=== PATIENT | female | born 1940 | race Two or more races ===

== ENCOUNTER 2024-06-18 19:37 | Inpatient (IN) | payer MEDICARE, OTHER, SELFPAY ==
[2024-06-18] VITALS (12 sets, daily range): BP systolic 91–132; BP diastolic 64–96; BMI 26.2
[2024-06-18 17:00] LABS: % Basophils 0.5 % (0-2); % Immature Granulocytes 1.2 % (0-0.5); % Lymphocytes 27.2 % (20.5-51.1); % Monocytes 7.3 % (1.7-9.3); % Neutrophils 51.8 % (42.2-75.2); Absolute Basophils 0.1 10^3/uL (0-0.2); Absolute Eosinophils 1.2 10^3/uL (0-0.7); Absolute Immature Granulocytes 0.1 10^3/uL (0-0.05); Absolute Lymphocytes 2.7 10^3/uL (1.2-3.4); Absolute Monocytes 0.7 10^3/uL (0.1-0.6); Absolute Neutrophils 5.2 10^3/uL (1.4-6.5); Hematocrit 41.3 % (37.0-47.0); Hemoglobin 13.2 g/dL (12.0-16.0); Mean Corpuscular Hgb 28.9 pg (27.0-31.0); Mean Corpuscular Volume 90.6 fL (81.0-99.0); Mean Platelet Volume 9.4 fL (7.4-10.4); Nucleated Red Blood Cells % 0 %; Platelet Count 300 10^3/uL (130-400); Red Blood Cell Count 4.56 10^6/uL (4.20-5.40); Red Cell Dist. Width 15.7 % (11.5-14.5)
[2024-06-18 17:11] LABS: APTT 27.3 Sec (23.4-35.0)
[2024-06-18 17:16] LABS: ALT (SGPT) 12 U/L (0-35); AST (SGOT) 23 U/L (14-36); Albumin 3.8 g/dl (3.5-5.0); Alkaline Phosphatase 59 U/L (38-126); Blood Urea Nitrogen 20 mg/dl (7-17); Calcium 9.2 mg/dl (8.4-10.2); Carbon Dioxide 30 mmol/L (22-30); Chloride 101 mmol/L (98-107); Estimated Creatinine Clearance 42 ml/min; Glucose 158 mg/dl (70-99); Potassium 3.9 mmol/L (3.5-5.1); Sodium 140 mmol/L (135-145); Total Bilirubin 0.3 mg/dl (0.2-1.3); Total Protein 6.3 g/dl (6.3-8.2); eGFR > 60.00
[2024-06-18 17:21] LABS: NT-proBNP 4140 pg/ml
[2024-06-18] MEDS: CARDIZEM 10 MG IV (17:22)
[2024-06-18] MEDS: CARDIZEM 125 IV (17:29)
--- NOTE | 2024-06-18 17:57 | ED.GENMED ---
History of Present Illness
<Marixa Suazo MD, Resident - Last Filed: 06/18/24 19:28>
General
Chief Complaint: Cardiac Symptoms
Source: patient and records
Exam Limitations: none
Time Seen by Provider: 06/18/24 16:42
Nursing documentation reviewed up to this point in time: agreed with
Travel History
Have you traveled to any high risk areas for coronavirus over the past 14 days?: No
Have you had any contact with someone who has COVID-19?: No
Do you have any symptoms of coronavirus? Fever > 100 degrees, chills, cough, shortness of breath, sore throat, loss of taste or smell, muscle aches, or headache?: No
History of Present Illness
History of Present Illness:
83-year-old female with past medical history significant for migraines sciatica, A-fib, recent diagnosis of congestive heart failure, peripheral venous insufficiency and GERD presents to the hospital with onset of her heart fluttering associated
with chest pressure-like sensation, anxiety, profuse sweating at about 3 PM. She called her creative services writer who asked her to come to the [facility] emergency room for evaluation.
Patient had this triad of symptoms about 2 weeks ago as well as last week. For both These Episodes She Was Hospitalized at [facility], 2 weeks ago she did not have heart failure but last week when she was admitted she was diagnosed with
heart failure, and started on Lasix 20 mg last week. Patient saw her creative services writer on 06/12/2024, her weight was at 140 pounds, her most recent weight check yesterday was at 145 pounds. Patient states that her swelling of the feet has been worse
over the last 2 to 3 weeks but otherwise it has been intermittent secondary to her venous insufficiency. Patient denies having orthopnea or PND, lightheadedness, dizziness, syncope or near syncopal episodes.
Patient is on dofetilide and metoprolol at home, and Eliquis for stroke prevention.
Patient takes her Eliquis doses regularly, last dose was in the a.m. today, does not miss Eliquis dosing.
If applicable-neuro sx onset
Onset of symptoms known: No
Time pt last seen normal is known: No
Past History
<Marixa Suazo MD, Resident - Last Filed: 06/18/24 19:28>
Past History
ED Past Medical History: Arrthythmia, HTN and Other (Ambulatory dysfunction, migraines, prior head injury, subdural hematoma, A-fib, congestive heart failure, essential hypertension, peripheral venous insufficiency, GERD, irritable bowel syndrome,
stress incontinence, sensorineural hearing loss B/L)
ED Past Surgical History: Other (Cataract extraction, tubal ligation, bilateral ear surgery)
Patient has exhibited threatening behavior?: No
PSI?: No
Social History
Tobacco: Former smoker
Alcohol: None
Drug: None
Living: alone
Employment: Retired
Family History
Family History: Unable to obtain
Review of Systems
<Marixa Suazo MD, Resident - Last Filed: 06/18/24 19:28>
Review of Systems
Other source history: family
All Other Systems: ROS reviewed and negative except as documented in HPI and ROS
Constitutional: Reports fatigue and other (Sweating present.)
EENT: Reports no symptoms
Respiratory: Reports trouble breathing
Cardiac: Reports chest pain, diaphoresis and palpitations
ABD/GI: Reports no symptoms
: Reports no symptoms
Musculoskeletal: Reports no symptoms
Skin: Reports no symptoms
Neurological: Reports no symptoms
Endocrine: Reports no symptoms
Hematologic/Lymphatic: Reports no symptoms
Psychiatric: Reports no symptoms
Phy Exam
<Marixa Suazo MD, Resident - Last Filed: 06/18/24 19:28>
General Physical Exam
General Presentation: well appearing
General Skin: warm
General Hydration: appears well hydrated
ENT Exam
ENT Exam: EOMI, TM's normal and pharynx normal
Cardiovascular Exam
Cardiovascular Exam: regular rate/rhythm, no edema, no gallop, no JVD, no murmur and normal peripheral pulses
Heart Sounds: normal
Pulmonary Exam
Pulmonary Exam: lungs clear, no respiratory distress, no rales, no crackles and no rhonchi
Gastrointestinal Exam
Gastrointestinal Exam: normal bowel sounds, non tender, soft, no pulsatile mass and non distended
Neurological Exam
Neurological Exam: alert, no motor deficits, normal reflexs and no sensory deficits
Musculoskeletal Exam
Musculoskeletal Exam: edema (2+ pitting edema, and venous stasis dermatitis.)
Skin Exam
Skin Exam: normal color
Scores
<Marixa Suazo MD, Resident - Last Filed: 06/18/24 19:28>
[id number] Score for Afib Stroke Risk
Age in Years (65=0, 65-74=1, >/=75=2): > or = 75
Sex (Female=+1): Female
Congestive Heart Failure History (Yes=+1): Yes
Hypertension History (Yes=+1): Yes
Stroke/TIA/Thromboembolism History (Yes=+2): No
Vascular Disease History (Yes=+1): Yes
Diabetes Mellitus (Yes=+1): No
Score: 6
Anticoagulation Recommendations: Recommend anticoagulation (as validated in nonvalvular fib)
<Sunny Tran MD - Last Filed: 06/18/24 19:26>
[id number] Score for Afib Stroke Risk
Score: 6
Anticoagulation Recommendations: Recommend anticoagulation (as validated in nonvalvular fib)
Course
<Mraixa Suazo MD, Resident - Last Filed: 06/18/24 19:28>
Orders/Labs/Results
Orders:
Orders
06/18/24 16:29
EKG [Electrocardiogram (*1)] Urgent
Reason for Study: Atrial Fibrillation
EKG- Treatment ONCE
06/18/24 16:52
Complete Blood Count/With Diff Urgent
Comprehensive Metabolic Panel Urgent
PTT Urgent
Pro-BNP [NT-proBNP] Urgent
06/18/24 17:04
Diltiazem HCl [Cardizem] 10 mg IV NOW STA
06/18/24 17:15
Diltiazem 125 mg/125 ml Nss [Cardizem] 125 mg in 125 ml IV PER PROTOCOL
Initial dose in mg/hr, then titrate:: 5
Titrate to keep:: Heart rate 80-100 bpm
Titrate by mg/hr:: 5 mg/hr
Frequency of titrations (minutes):: 15
Maximum dose in mg/hr:: 15
06/18/24 18:05
CR Chest Portable - 1 View Urgent
Comment:
Reason For Exam: SOB
Reason Study Needs to be Portable: Patient Unstable
Abnormal Lab Results
06/18/24
16:52
MCHC 32.0 L g/dL
(33.0-37.0)
RDW 15.7 H %
(11.5-14.5)
Abs Immat Gran (auto) 0.1 H 10^3/uL
(0-0.05)
Absolute Monos (auto) 0.7 H 10^3/uL
(0.1-0.6)
Absolute Eos (auto) 1.2 H 10^3/uL
(0-0.7)
Immature Gran % 1.2 H %
(0-0.5)
Eosinophils % 12.0 H %
(0-6)
BUN 20 H mg/dl
(7-17)
Glucose 158 H mg/dl
(70-99)
06/18/24 16:52
06/18/24 16:52
Vital Signs
Initial and Last Documented VS:
Initial Vital Signs
Temp Pulse Resp BP Pulse Ox
98.2 F 132 16 112/72 99
06/18/24 16:30 06/18/24 16:30 06/18/24 16:30 06/18/24 16:30 06/18/24 16:30
Last Documented Vital Signs
Temp Pulse Resp BP Pulse Ox
98.2 F 121 18 113/76 97
06/18/24 16:30 06/18/24 19:16 06/18/24 19:16 06/18/24 19:16 06/18/24 19:16
<Sunny Tran MD - Last Filed: 06/18/24 19:26>
Orders/Labs/Results
Orders:
Orders
06/18/24 16:29
EKG [Electrocardiogram (*1)] Urgent
Reason for Study: Atrial Fibrillation
EKG- Treatment ONCE
06/18/24 16:52
Complete Blood Count/With Diff Urgent
Comprehensive Metabolic Panel Urgent
PTT Urgent
Pro-BNP [NT-proBNP] Urgent
06/18/24 17:04
Diltiazem HCl [Cardizem] 10 mg IV NOW STA
06/18/24 17:15
Diltiazem 125 mg/125 ml Nss [Cardizem] 125 mg in 125 ml IV PER PROTOCOL
Initial dose in mg/hr, then titrate:: 5
Titrate to keep:: Heart rate 80-100 bpm
Titrate by mg/hr:: 5 mg/hr
Frequency of titrations (minutes):: 15
Maximum dose in mg/hr:: 15
06/18/24 18:05
CR Chest Portable - 1 View Urgent
Comment:
Reason For Exam: SOB
Reason Study Needs to be Portable: Patient Unstable
Abnormal Lab Results
06/18/24
16:52
MCHC 32.0 L g/dL
(33.0-37.0)
RDW 15.7 H %
(11.5-14.5)
Abs Immat Gran (auto) 0.1 H 10^3/uL
(0-0.05)
Absolute Monos (auto) 0.7 H 10^3/uL
(0.1-0.6)
Absolute Eos (auto) 1.2 H 10^3/uL
(0-0.7)
Immature Gran % 1.2 H %
(0-0.5)
Eosinophils % 12.0 H %
(0-6)
BUN 20 H mg/dl
(7-17)
Glucose 158 H mg/dl
(70-99)
06/18/24 16:52
06/18/24 16:52
Vital Signs
Initial and Last Documented VS:
Initial Vital Signs
Temp Pulse Resp BP Pulse Ox
98.2 F 132 16 112/72 99
06/18/24 16:30 06/18/24 16:30 06/18/24 16:30 06/18/24 16:30 06/18/24 16:30
Last Documented Vital Signs
Temp Pulse Resp BP Pulse Ox
98.2 F 121 18 113/76 97
06/18/24 16:30 06/18/24 19:16 06/18/24 19:16 06/18/24 19:16 06/18/24 19:16
<Marixa Suazo MD, Resident - Last Filed: 06/18/24 19:28>
MDM/Problems Addressed
Differential Diagnosis Includes:
Atrial fibrillation, acute CAD, acute exacerbation of congestive heart failure, other atrial arrhythmias.
MDM/Problems Addressed:
EKG evidence of for atrial fibrillation with RVR.
Patient was started on diltiazem drip.
Chronic conditions affecting care: Arrhythmia and Other (CHF)
<Marixa Suazo MD, Resident - Last Filed: 06/18/24 19:28>
*Radiology
Radiology exam reviewed: preliminary read by ED provider and radiology read reviewed
*Pulse Oximetry
Patient hypoxic: no
*EKG
Interpreted by ED Provider?: Yes
EKG Intrepretation Date: 06/18/24
EKG Intrepretation Time: 16:30
Interpretation: abnormal
Comparison EKG: changes noted
Rate: tachycardiac
Rhythm: a-fib
[place]: normal axis
Interval: normal QT interval
QRS Pattern: normal QRS
Ischemia: no ischemia
*Oil Dispatcher Interpretation
Rate: tachycardiac
Interpretation: abnormal
Heart Rate: 136
Rhythm: a-fib
*Critical Care Note
Total Time (30-74mins, 75-104mins- exclusive of procedures): Not Applicable
Data Reviewed
Review of Other/Old Records Reveals: Labs, Records and Radiology Studies
Source: patient and records
<Marixa Suazo MD, Resident - Last Filed: 06/18/24 19:28>
Update Note
Update Note:
Patient is updated that overnight patient might need to stay in the hospital.
Atrial fibrillation symptoms improved with the start of diltiazem drip.
Currently patient reports having some headache and dizziness.
Diltiazem drip stopped and patient is given a bolus of IV fluids.
ED Attending Note
<Marixa Suazo MD, Resident - Last Filed: 06/18/24 19:28>
ED Attending Note
I performed the substantive portion of visit, reviewed & personally made and approve the management plan that is documented in note by myself or SUSAN.: No
I performed a history and physical exam of patient and discussed management with resident, I reviewed resident's note and agree with documented findings and plan of care.: No
-
Portions of this chart may have been created with voice recognition software.� Occasional wrong word or��sound alike� substitutions may have occurred due to the inherent limitations of voice recognition software.
<Sunny Tran MD - Last Filed: 06/18/24 19:26>
ED Attending Note
Patient seen and examined by attending physician: Yes
ED Attending Note:
Patient with history of paroxysmal atrial fibrillation on Eliquis, presents to ED secondary to chest palpitations with increased heart rate noted at home, associated with chest pressure, diaphoresis, and lightheadedness. Patient has had multiple
similar episodes, including recent admission at [facility], during which time patient required diuresis and treatment with Cardizem which converted her spontaneously during hospitalization. Denies decreased oral intake. Denies nausea
or vomiting. Denies headache. Patient has taken Eliquis continually, including this morning.
Physical Exam
General: no apparent distress, not acutely ill. afebrile
Head: nc/at. eomi
Neck: supple. no meningeal signs. normal posterior pharynx
Heart: s1/s2 regular rate and rhythm, no murmur. equal radial pulses.
Lungs: no acute respiratory distress. clear bilaterally
Abdomen: normal bowel sounds. not tender.
Neuro: alert and oriented. no focal neurological deficits
Skin: no rash
Psychiatric: well kept. interactive and cooperative
Extremities: LE b/l pitting edema. no calf tenderness.
Patient started on Cardizem bolus along with Cardizem infusion, with improved heart rate. As there is increased leg swelling, along with increased proBNP level as well as a chest ray findings, patient may also require inpatient diuresis. Patient
will be admitted for further evaluation and treatment.
Critical care statement: A total of 40 minutes of critical care time was provided for this patient. This includes management of unstable vital signs, evaluation of the patient at bedside, reviewing the patient's pertinent medical records, review of
old EKGs and review of pertinent medical records. This time with separate from time utilized to perform the aforementioned documented procedures
Discharge Plan
Departure
Patient Disposition: Admit
Date of Disposition: 06/18/24
Time of Disposition: 19:27
Admit to doctor: Dr. Padron
Presentation/result/management discussed w/ accepting MD/DO: Hospitalist
Patient with high blood pressure during this ER visit?: No
Condition: Fair
Covid-19: Not Applicable
Discharge Problem:
Paroxysmal A-fib
Referrals:
Robb Moreno MD [Family Provider] -
Interventions
Interventions:
*Risk Screen - Suicide Last Done: 06/18/24 16:47
*General Assessment Last Done: 06/18/24 16:39
*Neglect/Abuse Screening Last Done: 06/18/24 16:47
ED- Fall Risk Assessment Last Done: 06/18/24 16:49
*ED COVID-19 Vaccine History Last Done: 06/18/24 16:39
ED- Pulmonary Assessment Last Done: 06/18/24 16:49
ED- Cardiac Assessment Last Done: 06/18/24 16:48
Discharge Date and Time
Print Language: URUGUAYAN
[2024-06-18 19:16] LABS: Glucose - Point of Care 73 mg/dl (70-99)
--- NOTE | 2024-06-18 19:37 | HPS.HSE ---
Family Physician
-
Family Physician: Robb Jackman [facility]
Chief Complaint
-
heart fluttering
History of Present Illness
83-year-old female past medical history of paroxysmal atrial fibrillation, CHF, peripheral venous insufficiency, GERD, migraines, sciatica, presenting with heart fluttering associated with chest pressure, anxiety, profuse sweating at 3 PM. She
called her public health engineer who told her to come to the hospital.
She had symptoms 2 weeks ago as well. She had 2 recent admissions for A-fib with RVR. She states that she was recently started on Tikosyn and the dose was increased. She was also changed to long-acting metoprolol. The most recent time she was
hospitalized at [facility] and recently diagnosed with heart failure and discharged on 20 mg Lasix last week daily. She saw her public health engineer on 03/12/2024 and her weight was 140 pounds. Her recent weight yesterday was 145 pounds but she
denies any swelling in her legs or weight gain. She denies any shortness of breath when she lies down or at nighttime.
At the current time patient feels intermittently dizzy as if she is going to pass out.
Patient's public health engineer is Dr. Bennett.
She denies smoking or alcohol use.
Medical History
Past Medical History
Past Medical History: Reports Other (paroxysmal atrial fibrillation, CHF, peripheral venous insufficiency, GERD, migraines, sciatica,)
Past Surgical History: Reports None
Social History
Tobacco: Non-smoker
Alcohol: None
Drug: None
Family History
Family History: Not pertinent
Allergies / Home Medications
Allergies reflects when Allergies were last updated in [facility].
Home Medications with original date entered in [facility]
Allergy/Medication List:
Allergies
Allergy/AdvReac Type Severity Reaction Status Date / Time
meperidine [From Demerol] Allergy Rash Verified 12/18/20 17:29
Penicillins Allergy Rash Verified 12/18/20 17:29
Sulfa (Sulfonamide Allergy Nausea / Verified 12/18/20 17:29
Antibiotics) Vomiting
Home Medications
apixaban 5 mg tablet (Eliquis) 5 mg PO BID 06/18/24
cholecalciferol (vitamin D3) 25 mcg (1,000 unit) tablet (Vitamin D3) 75 mcg PO DAILY 06/18/24
dofetilide 500 mcg capsule 500 mcg PO BID 06/18/24
duloxetine 60 mg capsule,delayed release 60 mg PO HS 06/18/24
furosemide 20 mg tablet 20 mg PO DAILY 06/18/24
losartan 25 mg tablet 12.5 mg PO DAILY 06/18/24
metoprolol tartrate 50 mg tablet 50 mg PO BID 06/18/24
oxycodone-acetaminophen 5 mg-325 mg tablet 1 tab PO Q4H 06/18/24
rabeprazole 20 mg tablet,delayed release 20 mg PO BID 06/18/24
sennosides 8.6 mg tablet (senna) 17.2 mg PO HS 06/18/24
Review of Systems
-
History Source: Patient
A 12 point ROS was completed and negative except as noted: Yes
Constitutional: Reports No Symptoms
EENT: Reports No Symptoms
Respiratory: Reports See HPI
Cardiac: Reports See HPI
Abdomen/GI: Reports No Symptoms
: Reports No Symptoms
Musculoskeletal: Reports No Symptoms
Skin: Reports No Symptoms
Neurological: Reports No Symptoms
Endocrine: Reports No Symptoms
Hematologic/Lymphatic: Reports No Symptoms
Psych: Reports No Symptoms
Physical Exam
Vital Signs
Vital Signs
Temp Pulse Resp BP Pulse Ox
98.2 F 123 20 102/64 100
06/18/24 16:30 06/18/24 19:30 06/18/24 19:30 06/18/24 19:30 06/18/24 19:30
Physical Exam
General: Well Developed, Well Nourished and No Apparent Distress
HEENT: NormoCephalic, Moist mucous membranes and Atraumatic
Respiratory: Clear
Cardiac: S1/S2 and Regular Rhythm; No Murmur or Rub
GI: Soft, Non Tender, Non Distended and Normal Bowel Sounds; No Organomegaly
Rectal: Deferred by Provider
Musculoskeletal: No Clubbing, No Cyanosis and No Edema
Skin: No Rash
Neuro: Nonfocal/grossly intact
Laboratory Results
-
06/18/24 16:52
06/18/24 16:52
Laboratory Results
APTT 27.3 Sec (23.4-35.0) 06/18/24 16:52
Total Bilirubin 0.3 mg/dl (0.2-1.3) 06/18/24 16:52
AST 23 U/L (14-36) 06/18/24 16:52
ALT 12 U/L (0-35) 06/18/24 16:52
Alkaline Phosphatase 59 U/L (38-126) 06/18/24 16:52
Data Reviewed
-
Lab Data: Labs Reviewed by me
Old Records: Reviewed
Impression/Plan
-
IMPRESSION:
PLAN:
# Atrial fibrillation with RVR
-EKG shows atrial fibrillation with RVR with rate of 116.
-Check troponin
-Cardizem drip
-Continue Eliquis
-Need to obtain records from her public health engineer Dr. Bennett
-Cardiology consulted
Chronic HFpEF
-Chest x-ray shows low lung volumes, pulmonary vascularity at least top normal, cannot exclude mild acute pulmonary edematous changes
-Continue 20 mg Lasix, may need to potentially increase
Essential hypertension
-Hold losartan
Peripheral venous insufficiency
Hyperlipidemia
GERD
-Continue rabeprazole
Migraines
Sciatica
Full code
DVT prophylaxis�Eliquis
Cardiac diet
[2024-06-18 20:11] LABS: Troponin I < 0.012 ng/ml
[2024-06-18] MEDS: ELIQUIS 5 MG PO (21:29)
[2024-06-18] MEDS: PROTONIX 40 MG PO (21:29)
[2024-06-18] MEDS: LOPRESSOR 50 MG PO (21:29)
[2024-06-18] MEDS: SENOKOT 17.2 MG PO (21:29)
[2024-06-18] MEDS: CYMBALTA DELAYED RELEASE 60 MG PO (21:30)
[2024-06-18] MEDS: TIKOSYN 500 MCG PO (21:30)
[2024-06-18] MEDS: PERCOCET 5/325 1 TABLET PO (21:38)
--- NOTE | 2024-06-18 22:00 | PTCARENOTE ---
Addendum entered by Aleta Gonzalez RN 06/18/24 23:47:
23:47 Pt converted to NSR with HR 58 Cardizem gtt is off
Original Note:
Pt admitted to room 2253. Pt AAOx3. Pt ambulates with walker at baseline but refused to get out of bed d/t weakness. Pt on Cardizem gtt, AFib on monitor with HR 102-110. Pt oriented to room, call ivory in reach.
[2024-06-19] VITALS (9 sets, daily range): BP systolic 100–137; BP diastolic 60–90; PULSE 75; O2SAT 95; BMI 27.8; BMI 26.6
[2024-06-19] MEDS: PERCOCET 5/325 1 TABLET PO ×6 (02:08→23:11)
[2024-06-19 02:09] LABS: % Basophils 0.7 % (0-2); % Eosinophils 9.2 % (0-6); % Immature Granulocytes 1.2 % (0-0.5); % Lymphocytes 22.2 % (20.5-51.1); % Monocytes 9.1 % (1.7-9.3); % Neutrophils 57.6 % (42.2-75.2); Absolute Basophils 0.1 10^3/uL (0-0.2); Absolute Immature Granulocytes 0.1 10^3/uL (0-0.05); Absolute Lymphocytes 2.5 10^3/uL (1.2-3.4); Absolute Neutrophils 6.5 10^3/uL (1.4-6.5); Hematocrit 39.7 % (37.0-47.0); Hemoglobin 12.9 g/dL (12.0-16.0); Mean Corp Hgb Conc. 32.5 g/dL (33.0-37.0); Mean Corpuscular Hgb 29.3 pg (27.0-31.0); Mean Corpuscular Volume 90.2 fL (81.0-99.0); Nucleated Red Blood Cells % 0 %; Platelet Count 263 10^3/uL (130-400); Red Cell Dist. Width 15.7 % (11.5-14.5); White Blood Cell Count 11.3 10^3/uL (4.8-10.8)
[2024-06-19 02:32] LABS: ALT (SGPT) 11 U/L (0-35); AST (SGOT) 21 U/L (14-36); Albumin 3.5 g/dl (3.5-5.0); Alkaline Phosphatase 56 U/L (38-126); Blood Urea Nitrogen 17 mg/dl (7-17); Calcium 9.1 mg/dl (8.4-10.2); Carbon Dioxide 30 mmol/L (22-30); Chloride 103 mmol/L (98-107); Estimated Creatinine Clearance 48 ml/min; Glucose 107 mg/dl (70-99); Potassium 4.7 mmol/L (3.5-5.1); Sodium 142 mmol/L (135-145); Total Bilirubin 0.3 mg/dl (0.2-1.3); Total Protein 5.9 g/dl (6.3-8.2); eGFR > 60.00
[2024-06-19 02:44] LABS: Troponin I < 0.012 ng/ml
--- NOTE | 2024-06-19 08:15 | PTCARENOTE ---
Assumed care of pt from prev nsg shift; Pt AAOx3 w/no c/o CP or SOB. Pt w/chronic back & neck pain for which pt gets scheduled PO Percocet. Pt's VS stable w/HR in the 60's-70's & BP 137/90 this AM. Pt c/o 'discomfort' at her L AC IV site. IV
dressing loose & IV leaked when flushing. L AC line D/C'd. Pt w/patent L FA line still in place. Pt assisted w/calling for breakfast & call ivory within reach. Plan of care ongoing.
--- NOTE | 2024-06-19 08:46 | W.PN.HOSP.TC ---
Addendum entered and electronically signed by Preston Thompson MD 06/19/24 13:58:
Updated son over the phone today
Original Note:
Today's Communication/Plan
-
Rate control and antiarrhythmic and anticoagulant. PT OT eval
Assessment / Plan
Assessment / Plan
Physical exam:
General: Well Developed, Well Nourished and No Apparent Distress
HEENT: Normocephalic, Atraumatic and Moist Mucous Membranes
Respiratory: Clear to Auscultation; Negative Wheezes, Rales or Rhonchi
Cardiac: Regular Rhythm and S1/S2
GI: Soft, Nontender and Nondistended
Musculoskeletal: No Clubbing, No Cyanosis and No Edema
Neuro: Awake, Alert and Oriented
Psych: Calm
A/P:
Paroxysmal atrial fibrillation:
On Cardizem drip but can discontinue
On rate control, metoprolol tartrate 50 mg p.o. twice a day
And antiarrhythmics, Tikosyn 500 mcg p.o. twice a day
On anticoagulants, Eliquis 5 mg p.o. twice a day
Continue cardiac monitoring
PT OT eval
Chronic HFpEF:
Continue diuretics, Lasix 20 mg twice a day
Continue beta-blockers
Hypertension:
Holding losartan
Continue metoprolol
Monitor blood pressure adjust medications accordingly
Chronic pain with opioid dependence:
Continue narcotics
GERD:
Continue PPI
DVT prophylaxis:
Eliquis
CODE STATUS:
Full code
Anticipated Discharge: 24 - 48 hours
Subjective/Interval History
-
Date of Service: June 19, 2024
Feels better overall, no chest pain or shortness of breath or palpitations.
Objective Data
-
Labs:
Laboratory Results
06/19/24
02:01
WBC 11.3 H
Hgb 12.9
Hct 39.7
Plt Count 263
Sodium 142
Potassium 4.7
Chloride 103
Carbon Dioxide 30
BUN 17
Creatinine 0.7
Glucose 107 H
Calcium 9.1
Total Bilirubin 0.3
AST 21
ALT 11
Alkaline Phosphatase 56
Vital Signs:
Vital Signs
Temp Pulse Resp BP Pulse Ox
97.9 F 70 18 137/90 98
06/19/24 08:17 06/19/24 08:15 06/19/24 08:17 06/19/24 08:13 06/19/24 08:17
I&O
06/18/24 06/19/24 06/20/24
06:59 06:59 06:59
Intake Total 150 / 150
Balance 150 / 150
[2024-06-19] MEDS: VITAMIN D3 (cholecalciferol) 75 MCG PO (09:01)
[2024-06-19] MEDS: TIKOSYN 500 MCG PO ×2 (09:01→19:45)
[2024-06-19] MEDS: ELIQUIS 5 MG PO ×2 (09:02→19:45)
[2024-06-19] MEDS: LASIX 20 MG PO (09:02)
[2024-06-19] MEDS: PROTONIX 40 MG PO ×2 (09:02→19:45)
[2024-06-19] MEDS: LOPRESSOR 50 MG PO ×2 (09:02→19:45)
[2024-06-19 09:33] LABS: Troponin I < 0.012 ng/ml
--- NOTE | 2024-06-19 12:14 | CM ---
spoke to pt in room, he is prev indep, lives with his in a 1 story home with no steps to enter. he denies any dc planning needs or dme's. plan is for dc to home when medically stable.
--- NOTE | 2024-06-19 12:18 | CM ---
spoke to pt in room, she is prev indep, lives alone in an apt at [facility]. she has a walker to use if needed. she denies any dc planning needs. plan is for dc to home when medically stable.
--- NOTE | 2024-06-19 15:10 | CON.CAR ---
Consultation
Consultation Request
Date/Time Consultation Requested: 06/19/24 at 0849
Date/Time Consultation Performed: 06/19/24 at 1400
Requesting Provider: Dr. Thompson
Performing Provider: Dr. Wasserman
Reason for Consultation: Paroxysmal Afib with RVR
Medical History
-
History of Present Illness:
[facility] with pal[facility]ations and was admitted with Afib with consult to cardiology. Patient has a h/o pAfib and was previously seen for consultation for PVI in 2021, but elected not to proceed. Patient reports that she seemed to
be doing well until last month when she started with increased burden of Afib. Patient had Afib for about 10 days before she went to [facility] ER and was admitted with acute HF and rapid Afib. Patient spontaneously converted with Cardizem IV and was
loaded with Tikosyn at a moderate dose. Patient was d/c'd to home and returned about a week later with more Afib and her Tikosyn dose was increased to 500 mcg q 12 hours. Patient then saw Dr. Bennett in the office 06/12/24 and was in SR. Plan was for
repeat consultation for PVI and patient is scheduled to see Dr. Espinoza 08/2024. In the meantime patient started with palpitations Tuesday and then had sustained Afib with symptoms of SOB and anxiety and was told by her hair baler to go [facility].
Patient was given Cardizem 10 mg IV x1 and then started on a Cardizem gtt and she spontaneously converted. At one point BP was as low as 90/50 and patient had near syncope, but no evidence of conversion pause or arrhythmia. Patient remains in SR now
with PACs that are highly symptomatic. Patient also with SOB and also with nonpitting LE edema. pro-BNP was 4140 in the ER, no Lasix IV given.
PMH:
Paroxysmal Afib
sotalol stopped due to ineffectiveness
amiodarone stopped due to neurologic side effects and long QT
Likely cortriatrium by CAL 10/09/21
Chronic Tikosyn therapy since 05/2024
Chronic Eliquis OAC
Recent admission x2 at [facility] for Afib and CHF 05/2024
Frequent PACs
HTN
Chronic pain with opioid dependence
Past Medical History
Past Medical History: Other (in HPI)
Past Surgical History: Gynecological (tubal ligation)
Social History
Tobacco: Former Smoker
Alcohol: None
Drug: None
Living: Alone (independent living at [facility])
Family History
Family History: CAD and Cancer
Allergies / Home Medications
Allergy/AdvReac Type Severity Reaction Status Date / Time
meperidine [From Demerol] Allergy Rash Verified 12/18/20 17:29
Penicillins Allergy Rash Verified 12/18/20 17:29
Sulfa (Sulfonamide Allergy Nausea / Verified 12/18/20 17:29
Antibiotics) Vomiting
�Medication �Instructions �Recorded �Confirmed �Type
apixaban 5 mg tablet (Eliquis) 5 mg PO BID Blood Clot 06/18/24 06/18/24 History
Prevention/Tx
cholecalciferol (vitamin D3) 25 75 mcg PO DAILY Supplement 06/18/24 06/18/24 History
mcg (1,000 unit) tablet (Vitamin
D3)
dofetilide 500 mcg capsule 500 mcg PO BID Arrhythmia 06/18/24 06/18/24 History
duloxetine 60 mg capsule,delayed 60 mg PO HS Depression 06/18/24 06/18/24 History
release
furosemide 20 mg tablet 20 mg PO DAILY Fluid 06/18/24 06/18/24 History
Retention/Swelling
losartan 25 mg tablet 12.5 mg PO DAILY Blood Pressure 06/18/24 06/18/24 History
metoprolol tartrate 50 mg tablet 50 mg PO BID Blood Pressure 06/18/24 06/18/24 History
oxycodone-acetaminophen 5 mg-325 1 tab PO Q4H Pain 06/18/24 06/18/24 History
mg tablet
rabeprazole 20 mg tablet,delayed 20 mg PO BID Gastrointestinal Issue 06/18/24 06/18/24 History
release
sennosides 8.6 mg tablet (senna) 17.2 mg PO HS Constipation 06/18/24 06/18/24 History
Review of Systems
-
History Source: Patient
All other systems: Negative unless noted
Physical Exam
Vital Signs
Temp Pulse Resp BP Pulse Ox
98.1 F 74 16 128/74 98
06/19/24 11:13 06/19/24 14:30 06/19/24 11:13 06/19/24 11:10 06/19/24 11:13
GEN: NAD. AAOx3
HEENT: EOMI, MMM
LUNGS: Right base rales without wheeze. On RA
CV: SR with PACs on tele. Reg with ectopy, S1/S2, no murmur
ABD: soft, BS+, NT, ND
EXT: +1 non-pitting B/L LE edema. No clubbing, cyanosis or lesions B/L
NEURO: Gross non-focal
SKIN: Warm, dry and pink. No rash
Lab Results
06/19/24 02:01
06/19/24 02:01
Troponin I Cancelled 06/19/24 13:30
Uos-U-Jixjteolwjm Pept 4140 pg/ml 06/18/24 16:52
Impression / Plan
-
PCP: Dr. Robb Atwood
Cardiology: Dr. Bennett at [facility]
Impression:
Acute HFpEF
Afib with RVR spontaneously converted to SR with Cardizem gtt 06/18/24
Paroxysmal Afib
sotalol stopped due to ineffectiveness
amiodarone stopped due to neurologic side effects and long QT
Likely cortriatrium by CAL 10/09/21
Chronic Tikosyn therapy since 05/2024
Chronic Eliquis OAC
Recent admission x2 at [facility] for Afib and CHF 05/2024
Frequent PACs
HTN
Chronic pain with opioid dependence
Echo echo 05/25/2024: EF 60 to 65%, normal RV function, mild MR
Plan:
-Patient [facility] yesterday with palpitations and was admitted with Afib with consult to cardiology. Patient has a h/o pAfib and was previously seen for consultation for PVI in 2021, but elected not to proceed. Patient reports that she seemed to
be doing well until last month when she started with increased burden of Afib. Patient had Afib for about 10 days before she went to [facility] ER and was admitted with acute HF and rapid Afib. Patient spontaneously converted with Cardizem IV and was
loaded with Tikosyn at a moderate dose. Patient was d/c'd to home and returned about a week later with more Afib and her Tikosyn dose was increased to 500 mcg q 12 hours. Patient then saw Dr. Bennett in the office 06/12/24 and was in SR. Plan was for
repeat consultation for PVI and patient is scheduled to see Dr. Espinoza 08/2024. In the meantime patient started with palpitations Tuesday and then had sustained Afib with symptoms of SOB and anxiety and was told by her hair baler to go [facility].
Patient was given Cardizem 10 mg IV x1 and then started on a Cardizem gtt and she spontaneously converted. At one point BP was as low as 90/50 and patient had near syncope, but no evidence of conversion pause or arrhythmia. Patient remains in SR now
with PACs that are highly symptomatic. Patient also with SOB and also with nonpitting LE edema. pro-BNP was 4140 in the ER, no Lasix IV given.
-Rale son exam, CXR suggests acute HF and pro-BNP 4140. Lasix 40 mg IV x1 now. Will re-evaluate volume status in AM to see if additional Lasix IV is needed.
-EF stable by echo at [facility] 05/25/24. Suspect acute HF based on rapid Afib, will focus on rate and rhythm control efforts.
-Cont Eliquis 5 mg BID (age 83, Cre 0.7, wt 68.9 kg). No missed doses.
-Patient spontaneously converted with Cardizem gtt.
-Cont Tikosyn 500 mcg q 12 hours that was started last month at [facility]. QTc 491 ms in SR on ECG 06/19/24 as reviewed by me.
-Cannot take sotalol or amio as outlined above. Patient previously declined ablation, but now agreeable. Patient with evidence of cortriatrium by CAL in [address] to establish which pulmonary veins come off anterior/posterior atria.
Will attempt to get EP appt moved up and to obtain CT as an outpatient in short order.
[2024-06-19] MEDS: LASIX 40 MG IV (16:20)
[2024-06-19] MEDS: FLUSH (NSS) 2 FLUSH IV (16:21)
[2024-06-19] MEDS: CYMBALTA DELAYED RELEASE 60 MG PO (23:11)
[2024-06-19] MEDS: SENOKOT 17.2 MG PO (23:11)
--- NOTE | 2024-06-19 23:51 | PTCARENOTE ---
Pt rec'd at change of shift awake,alert 'comfortable' at present while watching a movie. Sinus with first degree and occ pvc's noted on telemetry.
pure wick changed at 2300 ( pt with hx of significant incontinence at home). call ivory within reach.
[2024-06-20] MEDS: PERCOCET 5/325 1 TABLET PO ×4 (03:04→15:54)
[2024-06-20 03:52] VITALS: BP 115/62
[2024-06-20 04:18] LABS: % Basophils 1.2 % (0-2); % Eosinophils 13.3 % (0-6); % Immature Granulocytes 1.6 % (0-0.5); % Lymphocytes 28.1 % (20.5-51.1); % Neutrophils 45.8 % (42.2-75.2); Absolute Basophils 0.1 10^3/uL (0-0.2); Absolute Eosinophils 1.3 10^3/uL (0-0.7); Absolute Immature Granulocytes 0.2 10^3/uL (0-0.05); Absolute Lymphocytes 2.7 10^3/uL (1.2-3.4); Absolute Neutrophils 4.5 10^3/uL (1.4-6.5); Hematocrit 41.3 % (37.0-47.0); Hemoglobin 12.9 g/dL (12.0-16.0); Mean Corp Hgb Conc. 31.2 g/dL (33.0-37.0); Mean Corpuscular Hgb 29.3 pg (27.0-31.0); Mean Corpuscular Volume 93.9 fL (81.0-99.0); Mean Platelet Volume 9.3 fL (7.4-10.4); Nucleated Red Blood Cells % 0 %; Platelet Count 286 10^3/uL (130-400); Red Cell Dist. Width 15.8 % (11.5-14.5); White Blood Cell Count 9.7 10^3/uL (4.8-10.8)
[2024-06-20 04:43] LABS: Blood Urea Nitrogen 22 mg/dl (7-17); Calcium 9.1 mg/dl (8.4-10.2); Carbon Dioxide 32 mmol/L (22-30); Chloride 97 mmol/L (98-107); Estimated Creatinine Clearance 39 ml/min; Glucose 116 mg/dl (70-99); Potassium 4.1 mmol/L (3.5-5.1); Sodium 141 mmol/L (135-145)
[2024-06-20 06:00] VITALS: BMI 25.9
[2024-06-20 07:56] VITALS: BP 141/76
--- NOTE | 2024-06-20 08:00 | PTCARENOTE ---
Assumed care of pt from prev nsg shift; Pt AAOx3 drowsy but easily arousable w/no c/o CP or SOB. Pt w/chronic back & neck pain for which pt gets scheduled PO Percocet. This RN administered 0600 dose of Percocet late as prev shift held for pt's
drowsiness. Pt's VS stable w/HR in the 60's-70's & BP 141/76 this AM. Pt awaiting cardiac MRI today. Pt assisted w/calling for breakfast & call ivory within reach. Plan of care ongoing.
--- NOTE | 2024-06-20 08:48 | W.PN.HOSP.TC ---
Today's Communication/Plan
-
Discharge planning today
Assessment / Plan
Assessment / Plan
Physical exam:
General: Well Developed, Well Nourished and No Apparent Distress
HEENT: Normocephalic, Atraumatic and Moist Mucous Membranes
Respiratory: Clear to Auscultation; Negative Wheezes, Rales or Rhonchi
Cardiac: Regular Rhythm and S1/S2
GI: Soft, Nontender and Nondistended
Musculoskeletal: No Clubbing, No Cyanosis and No Edema
Neuro: Awake, Alert and Oriented
Psych: Calm
A/P:
Paroxysmal atrial fibrillation:
Normal sinus rhythm
On rate control, metoprolol tartrate increased 75 mg p.o. twice a day
On antiarrhythmics, Tikosyn 500 mcg p.o. twice a day
On anticoagulants, Eliquis 5 mg p.o. twice a day
Continue cardiac monitoring
PT OT eval
Acute on chronic HFpEF:
IV Lasix yesterday and today
Continue oral diuretics, Lasix changed to 40 mg Tuesday and 20 mg the rest of the days.
Continue beta-blockers
Cardiology wanted to introduce SGLT2 inhibitors but patient refused.
Hypertension:
Resume losartan
Continue metoprolol
Monitor blood pressure adjust medications accordingly
Chronic pain with opioid dependence:
Continue narcotics
GERD:
Continue PPI
DVT prophylaxis:
Eliquis
CODE STATUS:
Full code
Anticipated Discharge: Today
Subjective/Interval History
-
Date of Service: June 20, 2024
Patient denies any chest pain or shortness of breath.
Objective Data
-
Labs:
Laboratory Results
06/20/24
03:57
WBC 9.7
Hgb 12.9
Hct 41.3
Plt Count 286
Sodium 141
Potassium 4.1
Chloride 97 L
Carbon Dioxide 32 H
BUN 22 H
Creatinine 1.0
Glucose 116 H
Calcium 9.1
Vital Signs:
Vital Signs
Temp Pulse Resp BP Pulse Ox
97.9 F 64 16 141/76 95
06/20/24 07:53 06/20/24 08:00 06/20/24 07:53 06/20/24 07:56 06/20/24 07:53
I&O
06/19/24 06/20/24 06/21/24
06:59 06:59 06:59
Intake Total 150 / 150 960 / 960
Output Total 1550 / 1550
Balance 150 / 150 -590 / -590
--- NOTE | 2024-06-20 09:51 | W.PN.CARDCBS ---
Today's Communication / Plan
-
Lasix 20 IV now
Change oral Lasix to 40 Tuesday and 20 other days
Increase metoprolol to tartrate to 75 twice daily
Stable for discharge if able to ambulate without difficulty
proBNP and BMP early next week
Follow-up with usual cage supervisor and electrophysiology we will help to facilitate
Impression / Plan
-
PCP: Dr. Robb Atwood
Cardiology: Dr. Bennett at [facility]
Impression:
Acute HFpEF
Afib with RVR spontaneously converted to SR with Cardizem gtt 06/18/24
Paroxysmal Afib
sotalol stopped due to ineffectiveness
amiodarone stopped due to neurologic side effects and long QT
Likely cortriatrium by CAL 10/09/21
Chronic Tikosyn therapy since 05/2024
Chronic Eliquis OAC
Recent admission x2 at [facility] for Afib and CHF 05/2024
Frequent PACs
HTN
Chronic pain with opioid dependence
Echo echo 05/25/2024: EF 60 to 65%, normal RV function, mild MR
Plan:
-Patient presented with atrial fibrillation and volume overload. Intolerant to most antiarrhythmic medication and plan is for upcoming consultation with Dr. Espinoza. She spontaneously converted with diltiazem. Rhythm currently sinus rhythm with
short runs (a few beats) of PAT. Continue dofetilide. Continue assessment by electrophysiology. Will increase metoprolol to tartrate to 75 mg twice daily given initial heart rate in atrial fibrillation was 120 bpm. She follows with Dr. Bennett as
an outpatient. We will help facilitate appointment.
-She has cor triatriatum. Will plan for outpatient CT scan for assessment of anatomy for preablation planning. She tells me she is unable to perform a closed MRI given anxiety and claustrophobia.
-She presented with acute on chronic heart failure with preserved ejection fraction while in atrial fibrillation. pro-BNP 4140. Lasix 40 mg IV given. Weight not assessed today. Still is mildly volume overloaded we will give Lasix 20 mg IV now and
increase oral outpatient Lasix to 40 mg Tuesday and 20 mg other days. We will consult VN for outpatient heart failure VN. Chemistry and proBNP early next week. Watch for electrolyte abnormalities given she is on dofetilide. QT
interval stable.
-EF stable by echo at [facility] 05/25/24.
-Cont Eliquis 5 mg BID (age 83, Cre 0.7, wt 68.9 kg). No missed doses.
-Cannot take sotalol or amio as outlined above. Patient previously declined ablation, but now agreeable.
Discussed at length with patient. She would like to go home if able. We will make sure she can walk and is back to baseline. Discharge today if stable.
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
Subjective
Date of Service: June 20, 2024
She felt a few flutters. She denies chest pain and palpitations.
Objective
Labs:
06/20/24 03:57
06/20/24 03:57
Labs
Hgb 12.9 g/dL (12.0-16.0) 06/20/24 03:57
Hct 41.3 % (37.0-47.0) 06/20/24 03:57
Plt Count 286 10^3/uL (130-400) 06/20/24 03:57
APTT 27.3 Sec (23.4-35.0) 06/18/24 16:52
Sodium 141 mmol/L (135-145) 06/20/24 03:57
Potassium 4.1 mmol/L (3.5-5.1) 06/20/24 03:57
BUN 22 mg/dl (7-17) H 06/20/24 03:57
Creatinine 1.0 mg/dL (0.6-1.0) 06/20/24 03:57
Glucose 116 mg/dl (70-99) H 06/20/24 03:57
Troponins
06/18/24 06/18/24 06/19/24
19:27 19:39 02:01
Troponin I Cancelled < 0.012 < 0.012
06/19/24 06/19/24
09:00 13:30
Troponin I < 0.012 Cancelled
Vital Signs and I&O:
Vital Signs
Temp Pulse Resp BP Pulse Ox
97.9 F 64 16 141/76 95
06/20/24 07:53 06/20/24 08:00 06/20/24 07:53 06/20/24 07:56 06/20/24 07:53
Vital Signs
Temp Pulse Resp BP Pulse Ox
97.9 F 64 16 141/76 95
06/20/24 07:53 06/20/24 08:00 06/20/24 07:53 06/20/24 07:56 06/20/24 07:53
Intake & Output
06/18/24 06/19/24 06/20/24 06/21/24
06:59 06:59 06:59 06:59
Intake Total 150 / 150 960 / 960
Output Total 1550 / 1550
Balance 150 / 150 -590 / -590
Physical Exam
Physical Exam
General: Elderly woman in bed JVD 8 cm with positive HJR supple, no JVD, HJR, carotids +2 B/L, no bruits bilaterally.
Heart: Non displaced PMI, RRR, no murmurs, No S3, S4, no rubs.
Lungs: Decreased breath sounds bilaterally few crackles right lower base
Abdomen: Normal bowel sounds, soft, non-tender, non-distended.
Extremities: No clubbing, cyanosis and trace edema bilaterally.
Neuro: Grossly nonfocal, awake, alert and oriented x3.
[2024-06-20] MEDS: TIKOSYN 500 MCG PO (10:07)
[2024-06-20] MEDS: LOPRESSOR 50 MG PO (10:07)
[2024-06-20] MEDS: ELIQUIS 5 MG PO (10:07)
[2024-06-20] MEDS: PROTONIX 40 MG PO (10:07)
[2024-06-20] MEDS: VITAMIN D3 (cholecalciferol) 75 MCG PO (10:07)
[2024-06-20] MEDS: FLUSH (NSS) 2 FLUSH IV (10:08)
[2024-06-20] MEDS: LASIX 20 MG IV (10:08)
[2024-06-20 12:00] VITALS: BP 102/60
[2024-06-20] MEDS: LOPRESSOR 25 MG PO (12:01)
--- NOTE | 2024-06-20 13:19 | W.PN.UPDATE ---
Update Note
Progress Note Update
Updated patient in room about plans for EP telehealth visit and CT preablation. Patient is not interested in [facility] and feels it is an inappropriate choice for her despite h/o CHF. Patient is otherwise stable for d/c to home pending availability to
arrange for wheelchair van and home health aides.
--- NOTE | 2024-06-20 13:31 | W.DCSUMMARY ---
Discharge Summary
Discharge Data
Date of Admission: 06/18/24
Date of Discharge: 06/20/24
-
Pending Results: No
Hospital Course
Patient 83-year-old female history of paroxysmal A-fib hypertension, chronic pain, came into the hospital with shortness of breath and palpitations and found to be in rapid atrial fibrillation as well as acute heart failure. Patient was started on
Cardizem drip. She was also given IV Lasix. Cardiology consulted. Her A-fib converted to normal sinus rhythm and Cardizem drip discontinued. She has been kept on heart rate control agents and antiarrhythmics as well as anticoagulation. Her
diuretics were switched to oral. Cardiology discussed the addition of other GDMT medications such as SGT L2 inhibitors but patient declined. Patient did improve and has remained hemodynamically stable. PT OT saw the patient and recommended home
health that has been arranged. Cardiology cleared her for discharge today. Patient will be discharged in stable condition today.
Discharge duration: 36 minutes
Discharge Plan
-
Patient Disposition: Home with Home Care
Discharge Diagnosis/Procedures: Paroxysmal atrial fibrillation. Acute diastolic congestive heart failure. 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
Diet: 2 Gram Sodium and Restrict fluids to 64 oz
Blood Work: Please PCP to order CBC, BMP and pro-BNP within 1 week
Others Tests: -Dr. Espinoza's office is working to schedule a CT chest to evaluate the chambers of your heart for further consideration of possible ablation.
Other Services: [facility]N
Specialty Instructions: Weigh Daily- Call MD for wt gain/loss 3 lbs overnight/5 lbs in 1 week
Referrals:
Sabiha Nino, Visiting Nurse [Other]
Raji Espinoza MD [Active] - 07/09/24 4:20 pm (You have a telehealth visit with Dr. Espinoza on 07/09/24 at 4:20 PM to discuss possible ablation. The cardiology office is working to arrange a CT scan of the chest prior to your telehealth visit.)
Sebastián Bennett MD [Active] - 07/18/24 9:00 am
PerilsteinRobb MD [Family Provider] - in less than 1 week
Additional Discharge Medication Instructions: -Increase Lasix (furosemide) to 40 mg Mondays, Wednesdays and Fridays and then take Lasix 20 mg all other days (Tuesday, Tuesday, and Tuesday).
-Increase Lopressor (metoprolol tartrate) to 75 mg (one and a half tablets of a 50 mg tablet) twice a day
Prescriptions:
New
metoprolol tartrate 50 mg Tablet
75 mg PO BID Qty: 90 11RF
furosemide [Lasix] 40 mg tablet
40 mg PO DAILY Qty: 30 10RF
Rx Instructions:
Lasix 40 mg Tuesday, Tuesday and Tuesday. Lasix 20 mg Tuesday, Tuesday, and Tuesday.
Continued
sennosides [senna] 8.6 mg Tablet
17.2 mg PO HS
rabeprazole 20 mg Tablet,Delayed Release (Dr/Ec)
20 mg PO BID
oxycodone-acetaminophen 5-325 mg Tablet
1 tab PO Q4H
losartan 25 mg Tablet
12.5 mg PO DAILY
dofetilide 500 mcg Capsule
500 mcg PO BID
duloxetine 60 mg Capsule,Delayed Release(Dr/Ec)
60 mg PO HS
cholecalciferol (vitamin D3) [Vitamin D3] 25 mcg (1,000 unit) Tablet
75 mcg PO DAILY
Eliquis 5 mg Tablet
5 mg PO BID
Discontinued
metoprolol tartrate 50 mg Tablet
50 mg PO BID
furosemide 20 mg Tablet
20 mg PO DAILY
Discharge Orders:
Discharge Patient (As Directed); Ordered 06/20/24
Ordered By: Preston Thompson
Care Plan Goals
Care Plan Goals:
Problem: Readiness for enhanced knowledge related to diagnosis and treatment plan
Goal: Understand your diagnosis and treatment plan needs, including medications if applicable.
Instructions: Know your diagnosis, underlying causes and treatment plan options, including medications if applicable. Consult with your health care team to learn about your diagnosis and treatment plan, including medications if applicable.
Discharge Date and Time
Discharge Date/Time: 06/20/24 16:45
Print Language: ROMANIAN
--- NOTE | 2024-06-20 14:03 | CM ---
Zack Hess thru patient's pharmacy @ [facility]. Estimated cost of 1 mo. supply is $130.
Did meet w/ patient to review this. Pt. stated that this was not cost prohibitive but did wish to speak w/ MD regarding the necessity of this medication. TT to ADRIENNE to update.
--- NOTE | 2024-06-20 14:06 | CM ---
CM following for DC planning needs.
Met w/ patient at bedside. She confirms that she resides at [facility] alone. She is indep. w/ use of a RW.
She has assistance with [facility] 12 h per day 8a-8p.
She also has home PT thru [facility].
We discussed DC plans. She would to resume care thru [facility]. Referral made, requested RN in addition to PT for CHF education.
Pt. will need transport home. She would like a wheelchair van and is agreeable to cost. Transport arranged, payment made.
Plan is for home today via [facility] with home-care thru [facility].
[2024-06-20 15:01] VITALS: BP 104/61
--- NOTE | 2024-06-20 16:58 | PTCARENOTE ---
Pt's IV line & telemetry pack removed. D/C instructions discussed w/pt. Pt left via [facility]. 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
== END 2024-06-20 16:45 | disposition home health service (06) | DRG 291 ==
LOC: IVU 19:37
PROVIDERS: ADMITTING PHYSICIAN Hospitalist; ATTENDING PHYSICIAN Hospitalist; EMERGENCY PHYSICIAN Emergency Medicine; FAMILY PHYSICIAN Family Medicine; OTHER PHYSICIAN Internal Medicine Interventional Cardiology
DX: I11.0 Hypertensive heart disease with heart failure (principal); I50.33 Acute on chronic diastolic (congestive) heart failure; Q24.2 Cor triatriatum; F11.20 Opioid dependence, uncomplicated; I48.0 Paroxysmal atrial fibrillation; I87.2 Venous insufficiency (chronic) (peripheral); K21.9 Gastro-esophageal reflux disease without esophagitis; G43.909 Migraine, unspecified, not intractable, without status migrainosus; G89.29 Other chronic pain; E78.5 Hyperlipidemia, unspecified; F32.A Depression, unspecified; F41.9 Anxiety disorder, unspecified; H90.3 Sensorineural hearing loss, bilateral; M54.30 Sciatica, unspecified side; Z88.5 Allergy status to narcotic agent; Z88.2 Allergy status to sulfonamides; Z88.0 Allergy status to penicillin; Z87.891 Personal history of nicotine dependence; Z79.899 Other long term (current) drug therapy; Z79.01 Long term (current) use of anticoagulants; Z82.49 Family history of ischemic heart disease and other diseases of the circulatory system
CPT/HCPCS: 71045; 80048; 80053; 82962; 83735; 83880; 84484; 85025; 85730; 87070; 93005; 96374; 97163; 97166; 99285

== ENCOUNTER → 2024-07-02 13:03 | Outpatient (REF) | payer MEDICARE, OTHER, SELFPAY | LOC: RAD 13:03 | PROVIDERS: ATTENDING PHYSICIAN Internal Medicine Cardiovascular Disease; OTHER PHYSICIAN Internal Medicine; OTHER PHYSICIAN Internal Medicine Interventional Cardiology | DX: Q24.2 Cor triatriatum (principal); I48.0 Paroxysmal atrial fibrillation | CPT/HCPCS: 75572; Q9967 ==

== ENCOUNTER 2024-07-25 19:51 | Inpatient (IN) | payer MEDICARE, OTHER, SELFPAY ==
[2024-07-25] VITALS (27 sets, daily range): BP systolic 105–138; BP diastolic 68–97; BMI 26.2
[2024-07-25 18:12] LABS: % Basophils 0.3 % (0-2); % Eosinophils 1.3 % (0-6); % Immature Granulocytes 0.9 % (0-0.5); % Lymphocytes 12.1 % (20.5-51.1); % Monocytes 8.1 % (1.7-9.3); % Neutrophils 77.3 % (42.2-75.2); Absolute Eosinophils 0.1 10^3/uL (0-0.7); Absolute Immature Granulocytes 0.1 10^3/uL (0-0.05); Absolute Lymphocytes 1.3 10^3/uL (1.2-3.4); Absolute Monocytes 0.9 10^3/uL (0.1-0.6); Absolute Neutrophils 8.4 10^3/uL (1.4-6.5); Hematocrit 42.5 % (37.0-47.0); Mean Corp Hgb Conc. 30.6 g/dL (33.0-37.0); Mean Corpuscular Volume 94.7 fL (81.0-99.0); Nucleated Red Blood Cells % 0 %; Platelet Count 202 10^3/uL (130-400); Red Blood Cell Count 4.49 10^6/uL (4.20-5.40); Red Cell Dist. Width 15.5 % (11.5-14.5); White Blood Cell Count 10.8 10^3/uL (4.8-10.8)
--- NOTE | 2024-07-25 18:20 | ED.GENMED ---
History of Present Illness
<RAYNA Benavides - Last Filed: 07/25/24 20:21>
General
Chief Complaint: Cardiac Symptoms
Source: patient
Exam Limitations: none
Time Seen by Provider: 07/25/24 17:55
History of Present Illness
History of Present Illness:
This is a 83 year old female that comes in with c/o atrial fib. States that she was resting and fell asleep. States that she awoke with a start and her heart rate was rapid. States that she was lightheaded. States that she took her BP and it was
154/107. States that she was given Doxycycline for a stye. States that she was sweating and felt SOB. State that she has nausea and vomiting yesterday and diarrhea. Denies any fever, chills, chets pain, abd pain, vomiting, nausea or diarrhea today,
headache, urinary burning.
Past History
<RAYNA Benavides - Last Filed: 07/25/24 20:21>
Past History
ED Past Medical History: Arrthythmia (Atrial fib), CHF, GERD, HTN, Psychiatric (Anxiety, Depression, ), Other (Toby ear pain, 3 atrial chambers) and Other (Ambulatory dysfunction, migraines, Subdural hematoma head injury, subdural hematoma,
peripheral venous insufficiency, irritable bowel syndrome, stress incontinence, sensorineural hearing loss )
ED Past Surgical History: Gynecological (tubal, ) and Other (Cataract extraction,, bilateral ear surgery)
Patient has exhibited threatening behavior?: No
PSI?: No
Social History
Tobacco: Former smoker
Alcohol: None
Drug: None
Personal:
Living: assisted living ([facility] choice)
Employment: Retired
Family History
Family History: Unable to obtain
Review of Systems
<RAYNA Benavides - Last Filed: 07/25/24 20:21>
Review of Systems
Constitutional: Reports no symptoms; Denies fever or chills
EENT: Reports no symptoms
Respiratory: Reports trouble breathing; Denies cough
Cardiac: Reports other (irregular heart beat); Denies chest pain
ABD/GI: Reports no symptoms; Denies abdominal pain, nausea, vomiting or diarrhea
: Reports incontinence; Denies dysuria, frequency or urgency
Musculoskeletal: Reports no symptoms
Skin: Reports no symptoms
Neurological: Reports other (lightheaded); Denies dizzy or headache
Psychiatric: Reports no symptoms
Phy Exam
<RAYNA Benavides - Last Filed: 07/25/24 20:21>
General Physical Exam
General Presentation: no apparent distress
General age: appears stated age
General Skin: warm and dry
General Habitus: elderly
General Mental: alert
General Hydration: appears well hydrated
ENT Exam
ENT Exam: TM's normal, pharynx normal and neck supple
Eye Exam
Eye Exam: EOMI
Cardiovascular Exam
Cardiovascular Exam: normal peripheral pulses and irregularly irregular
Pulmonary Exam
Pulmonary Exam: lungs clear, no respiratory distress, no rales, chest non tender, no crackles, no rhonchi, no wheezing and no cough
Gastrointestinal Exam
Gastrointestinal Exam: normal bowel sounds, non tender, soft, no organomegaly, no pulsatile mass and non distended
Musculoskeletal Exam
Musculoskeletal Exam: full ROM and edema (nonpitting slight edema)
Skin Exam
Skin Exam: normal color, warm/dry, no rash and no petechia
Psychiatric Exam
Psychiatric Exam: normal mood/affect
Course
<RAYNA Benavides - Last Filed: 07/25/24 20:21>
Orders/Labs/Results
Orders:
Orders
07/25/24 Dinner
Cholesterol Lowering
At Your Request: Limited Participation
Cholesterol Lowering: Sodium, 2 Gram
07/25/24 17:55
Electrocardiogram (*1) Urgent
Reason for Study: Palpitations
EKG- Treatment ONCE
07/25/24 18:06
Complete Blood Count/With Diff Urgent
Comprehensive Metabolic Panel Urgent
PT/INR [Prothrombin Time] Urgent
Is patient on Coumadin/Warfarin?: No
Comment: xarelto
PTT Urgent
Troponin I Urgent
07/25/24 18:26
Propofol [Diprivan] 20 ml .ROUTE .STK-MED
07/25/24 18:36
Diltiazem 125 mg/125 ml Nss [Cardizem] 125 mg in 125 ml IV NOW
Initial dose in mg/hr, then titrate:: 5
Titrate to keep:: Heart rate 80-100 bpm
Titrate by mg/hr:: 5 mg/hr
Frequency of titrations (minutes):: 15
Maximum dose in mg/hr:: 15
07/25/24 18:38
0.9% Sodium Chloride 500 ml [Nss] 500 ml IV BOLUS
07/25/24 19:02
Diltiazem HCl [Cardizem] 10 mg IV NOW STA
07/25/24 19:06
Consult Cardiology [CARDIOLOGY CONSULT] Urgent
Consulting Provider: Sergo Kaplan
Was physician already notified: Yes
07/25/24 19:07
CR Chest - 2 Views Urgent
Comment:
Reason For Exam: SOB
07/25/24 19:31
Admit/Transfer Patient As Directed
Co-Sign Provider:
Level of Care: Inpatient admission
Assign to:: IVU
Physician / Group: hospitalist
Diagnosis: rapid atrial fibrillation
Reason for Hospitalization: rapid afib
Expected length of stay greater than two midnights?: Yes
ELOS- Estimated Length of Stay in days: 2
I certify the patient meets the requirements for IP care: Yes
PRN Pain Medication Management As Directed
May give lesser potent ordered pain med per pt: Yes
preference::
Protocol:: Medication orders for pain may be administered in a
manner that supports deferring to patient preference
when the pt is:
- Requesting an ordered lesser potent pain medication.
Least to most potent pain medications are defined
as: acetaminophen < NSAID < tramadol < opioids
(morphine, oxycodone, hydromorphone).
- Requesting a lesser dose of the same medication IF
ORDERED.
- Requesting a less intrusive route of administration
if both routes are prescribed by the provider (PO <
IV).
07/25/24 19:32
Code Status As Directed
Resuscitation Status: Full Code
07/25/24 23:00
Furosemide [Lasix] 40 mg PO SuWe@0800
Pantoprazole [Protonix] 40 mg PO BID
07/25/24 23:21
Apixaban [Eliquis] 5 mg PO BID
Diltiazem 125 mg/125 ml Nss [Cardizem] 125 mg in 125 ml IV PER PROTOCOL
Currently infusing. Continue current dose and titrate:: Yes
Titrate to keep:: Heart rate 80-100 bpm
Titrate by mg/hr:: 5 mg/hr
Frequency of titrations (minutes):: 15
Maximum dose in mg/hr:: 15
Docusate Sodium [Colace] 100 mg PO BIDPRN PRN
Dofetilide [Tikosyn] 500 mcg PO BID
Duloxetine Delayed Release [Cymbalta Delayed Release] 60 mg PO HS
Metoprolol Xl [Toprol Xl] 75 mg PO BID
Sennosides [Senokot] 17.2 mg PO HSPRN PRN
07/25/24 23:21
VTE Contraindication Routine
VTE Mechanical Device Contraindication: Medical Contraindication
Pharmocologic Contraindication: Medical Contraindication
Activity As Directed
Activity Level: With Assistance
Intake/ Output As Directed
Frequency: Per unit guidelines
Patient Education As Directed
Type: CHF folder
Comment: give on admission. Document in Interdisciplinary Education record
Sleep Apnea Assessment by RN As Directed
Comment:
Physician Instructions:
Vital Signs As Directed
Frequency: Other
Additional Instructions:: Q12 or per unit guidelines if more frequent.
Weight As Directed
Frequency: Daily
Type of Scale: Standing Scale
Comment: Daily morning weight. If unable to stand, use balanced bed scale.
Weight As Directed
Frequency: Once
Type of Scale: Standing Scale
Comment: Upon Admission. If unable to stand, use balanced bed scale.
O2 Therapy [RESP] Routine
Nasal Cannula Liter Flow: 2 LPM
Titrate/Wean O2 to maintain O2 sat greater than (%): 95
Pulse Ox/cont/shift [RESP] Routine
Quantity: 1
Special Instructions: Daily pulse oximetry at rest. If greater than 92% at rest also obtain pulse oximetry
while ambulating as tolerated.
07/26/24 00:00
Oxycodone/Acetaminophen [Percocet 5/325] 1 tablet PO Q4H
07/26/24 06:00
Basic Metabolic Panel IN AM
Magnesium IN AM
Phosphorus IN AM
TSH Reflex To Free T4 IN AM
07/26/24 08:00
Furosemide [Lasix] 20 mg PO MoTuThFrSa@0800
07/27/24 06:00
Basic Metabolic Panel IN AM
07/28/24 06:00
Basic Metabolic Panel IN AM
Abnormal Lab Results
07/25/24
18:06
MCHC 30.6 L g/dL
(33.0-37.0)
RDW 15.5 H %
(11.5-14.5)
Abs Immat Gran (auto) 0.1 H 10^3/uL
(0-0.05)
Absolute Neuts (auto) 8.4 H 10^3/uL
(1.4-6.5)
Absolute Monos (auto) 0.9 H 10^3/uL
(0.1-0.6)
Immature Gran % 0.9 H %
(0-0.5)
Neutrophils % 77.3 H %
(42.2-75.2)
Lymphocytes % 12.1 L %
(20.5-51.1)
BUN 29 H mg/dl
(7-17)
Glucose 107 H mg/dl
(70-99)
Calcium 8.3 L mg/dl
(8.4-10.2)
Total Protein 5.9 L g/dl
(6.3-8.2)
Albumin 3.4 L g/dl
(3.5-5.0)
07/25/24 18:06
07/25/24 18:06
neutrophils slightly elevated. PT 13.5 with INR 0.99, PTT 29.5, Dehydration glucose nonfasting, calcium slightly low. Troponin <0.012, Total protein slightly low. Albumin slightly low.
Vital Signs
Initial and Last Documented VS:
Initial Vital Signs
Pulse Resp BP Pulse Ox
136 21 108/83 97
07/25/24 17:51 07/25/24 17:51 07/25/24 17:51 07/25/24 17:51
Last Documented Vital Signs
Temp Pulse Resp BP Pulse Ox
99.1 F 88 16 105/68 95
07/25/24 23:30 07/26/24 00:07 07/25/24 23:30 07/26/24 00:07 07/26/24 00:15
<Aracely Robert DO - Last Filed: 07/26/24 00:30>
Orders/Labs/Results
Orders:
Orders
07/25/24 Dinner
Cholesterol Lowering
At Your Request: Limited Participation
Cholesterol Lowering: Sodium, 2 Gram
07/25/24 17:55
Electrocardiogram (*1) Urgent
Reason for Study: Palpitations
EKG- Treatment ONCE
07/25/24 18:06
Complete Blood Count/With Diff Urgent
Comprehensive Metabolic Panel Urgent
PT/INR [Prothrombin Time] Urgent
Is patient on Coumadin/Warfarin?: No
Comment: xarelto
PTT Urgent
Troponin I Urgent
07/25/24 18:26
Propofol [Diprivan] 20 ml .ROUTE .STK-MED
07/25/24 18:36
Diltiazem 125 mg/125 ml Nss [Cardizem] 125 mg in 125 ml IV NOW
Initial dose in mg/hr, then titrate:: 5
Titrate to keep:: Heart rate 80-100 bpm
Titrate by mg/hr:: 5 mg/hr
Frequency of titrations (minutes):: 15
Maximum dose in mg/hr:: 15
07/25/24 18:38
0.9% Sodium Chloride 500 ml [Nss] 500 ml IV BOLUS
07/25/24 19:02
Diltiazem HCl [Cardizem] 10 mg IV NOW STA
07/25/24 19:06
Consult Cardiology [CARDIOLOGY CONSULT] Urgent
Consulting Provider: Sergo Kaplan
Was physician already notified: Yes
07/25/24 19:07
CR Chest - 2 Views Urgent
Comment:
Reason For Exam: SOB
07/25/24 19:31
Admit/Transfer Patient As Directed
Co-Sign Provider:
Level of Care: Inpatient admission
Assign to:: IVU
Physician / Group: hospitalist
Diagnosis: rapid atrial fibrillation
Reason for Hospitalization: rapid afib
Expected length of stay greater than two midnights?: Yes
ELOS- Estimated Length of Stay in days: 2
I certify the patient meets the requirements for IP care: Yes
PRN Pain Medication Management As Directed
May give lesser potent ordered pain med per pt: Yes
preference::
Protocol:: Medication orders for pain may be administered in a
manner that supports deferring to patient preference
when the pt is:
- Requesting an ordered lesser potent pain medication.
Least to most potent pain medications are defined
as: acetaminophen < NSAID < tramadol < opioids
(morphine, oxycodone, hydromorphone).
- Requesting a lesser dose of the same medication IF
ORDERED.
- Requesting a less intrusive route of administration
if both routes are prescribed by the provider (PO <
IV).
07/25/24 19:32
Code Status As Directed
Resuscitation Status: Full Code
07/25/24 23:00
Furosemide [Lasix] 40 mg PO SuWe@0800
Pantoprazole [Protonix] 40 mg PO BID
07/25/24 23:21
Apixaban [Eliquis] 5 mg PO BID
Diltiazem 125 mg/125 ml Nss [Cardizem] 125 mg in 125 ml IV PER PROTOCOL
Currently infusing. Continue current dose and titrate:: Yes
Titrate to keep:: Heart rate 80-100 bpm
Titrate by mg/hr:: 5 mg/hr
Frequency of titrations (minutes):: 15
Maximum dose in mg/hr:: 15
Docusate Sodium [Colace] 100 mg PO BIDPRN PRN
Dofetilide [Tikosyn] 500 mcg PO BID
Duloxetine Delayed Release [Cymbalta Delayed Release] 60 mg PO HS
Metoprolol Xl [Toprol Xl] 75 mg PO BID
Sennosides [Senokot] 17.2 mg PO HSPRN PRN
07/25/24 23:21
VTE Contraindication Routine
VTE Mechanical Device Contraindication: Medical Contraindication
Pharmocologic Contraindication: Medical Contraindication
Activity As Directed
Activity Level: With Assistance
Intake/ Output As Directed
Frequency: Per unit guidelines
Patient Education As Directed
Type: CHF folder
Comment: give on admission. Document in Interdisciplinary Education record
Sleep Apnea Assessment by RN As Directed
Comment:
Physician Instructions:
Vital Signs As Directed
Frequency: Other
Additional Instructions:: Q12 or per unit guidelines if more frequent.
Weight As Directed
Frequency: Daily
Type of Scale: Standing Scale
Comment: Daily morning weight. If unable to stand, use balanced bed scale.
Weight As Directed
Frequency: Once
Type of Scale: Standing Scale
Comment: Upon Admission. If unable to stand, use balanced bed scale.
O2 Therapy [RESP] Routine
Nasal Cannula Liter Flow: 2 LPM
Titrate/Wean O2 to maintain O2 sat greater than (%): 95
Pulse Ox/cont/shift [RESP] Routine
Quantity: 1
Special Instructions: Daily pulse oximetry at rest. If greater than 92% at rest also obtain pulse oximetry
while ambulating as tolerated.
07/26/24 00:00
Oxycodone/Acetaminophen [Percocet 5/325] 1 tablet PO Q4H
07/26/24 06:00
Basic Metabolic Panel IN AM
Magnesium IN AM
Phosphorus IN AM
TSH Reflex To Free T4 IN AM
07/26/24 08:00
Furosemide [Lasix] 20 mg PO MoTuThFrSa@0800
07/27/24 06:00
Basic Metabolic Panel IN AM
07/28/24 06:00
Basic Metabolic Panel IN AM
Abnormal Lab Results
07/25/24
18:06
MCHC 30.6 L g/dL
(33.0-37.0)
RDW 15.5 H %
(11.5-14.5)
Abs Immat Gran (auto) 0.1 H 10^3/uL
(0-0.05)
Absolute Neuts (auto) 8.4 H 10^3/uL
(1.4-6.5)
Absolute Monos (auto) 0.9 H 10^3/uL
(0.1-0.6)
Immature Gran % 0.9 H %
(0-0.5)
Neutrophils % 77.3 H %
(42.2-75.2)
Lymphocytes % 12.1 L %
(20.5-51.1)
BUN 29 H mg/dl
(7-17)
Glucose 107 H mg/dl
(70-99)
Calcium 8.3 L mg/dl
(8.4-10.2)
Total Protein 5.9 L g/dl
(6.3-8.2)
Albumin 3.4 L g/dl
(3.5-5.0)
07/25/24 18:06
07/25/24 18:06
Vital Signs
Initial and Last Documented VS:
Initial Vital Signs
Pulse Resp BP Pulse Ox
136 21 108/83 97
07/25/24 17:51 07/25/24 17:51 07/25/24 17:51 07/25/24 17:51
Last Documented Vital Signs
Temp Pulse Resp BP Pulse Ox
99.1 F 88 16 105/68 95
07/25/24 23:30 07/26/24 00:07 07/25/24 23:30 07/26/24 00:07 07/26/24 00:15
Procedures
<RAYNA Benavides - Last Filed: 07/25/24 20:21>
Moderate Sedation
ASA Risk Score: Class I
Chart and allergies reviewed: Yes
Consent for anesthesia obtained: Yes
Time out completed (validating right patient & procedure): Yes
Moderate Sedation Start Time(when first medication is given): 18:30
History of difficult intubation: No
Airway free of obstruction: Yes
Patient has a gag reflex: Yes
Patient is able to open mouth: Yes
Patient has no dentures: Yes
Patient has no loose teeth: Yes
Medication administered by Provider during Moderate Sedation: IV Propofol (mg)
Total dose administered: 30
Time drug administered: 18:30
Moderate Sedation Procedure End Time: 18:45
Comment: patient was shocked twice but went back both times into atrial fib.
<RAYNA Benavides - Last Filed: 07/25/24 20:21>
MDM/Problems Addressed
Differential Diagnosis Includes:
Atrial fib,
MDM/Problems Addressed:
This is a 83 year old female that comes in with c/o increased heart rate. States that she awoke with a start as her heart rate was elevated. States that her BP was 154/107. States that she also felt lightheaded.
Explained to patient that since she is on Eliquis getting her back into a normal Rhythm could be done two ways. Will attempt to cardiovert or medication. Patient states that she has been Cardioverted in the past. Dr. Garrett into see patient and will
attempt cardioversion.
Cardioversion attempted twice but was unsuccessful. Will place patient on Cardizem drip and admit patient. States that DR. Espinoza was to do an ablation in September.
Chronic conditions affecting care: Arrhythmia (Atrial fib)
Acute Exacerbation and/or Progression of Chronic Illness: Arrhythmia (Atrial fib)
<RAYNA Benavides - Last Filed: 07/25/24 20:21>
*Radiology
Radiology exam reviewed: radiology read reviewed (Chest-No acute cardiopulmonary process. )
*EKG
Interpreted by ED Provider?: Yes
Heart Rate: 146
Rate: tachycardiac
Rhythm: a-fib
[place]: left axis deviation
QRS Pattern: normal QRS
Ischemia: no ischemia
*[employer] Interpretation
Rate: tachycardiac
Interpretation: abnormal
Heart Rate: 169
Rhythm: a-fib
*Critical Care Note
Total Time (30-74mins, 75-104mins- exclusive of procedures): Not Applicable
ED Attending Note
<RAYNA Benavides - Last Filed: 07/25/24 20:21>
-
Portions of this chart may have been created with voice recognition software.� Occasional wrong word or��sound alike� substitutions may have occurred due to the inherent limitations of voice recognition software.
<Aracely Robert DO - Last Filed: 07/26/24 00:30>
ED Attending Note
Patient seen and examined by attending physician: Yes
I performed the substantive portion of visit, reviewed & personally made and approve the management plan that is documented in note by myself or SUSAN.: Yes
ED Attending Note:
I have reviewed and agree with Medina WAY history and treatment plan. 83-year-old female history of atrial fibrillation on Eliquis, metoprolol and Tikosyn presenting with palpitations starting this afternoon around 1 PM when she woke up from
a nap. Patient reports shortness of breath but denies chest pain. Patient states that she has been compliant with all medications, has not missed any doses of Eliquis. Patient states that this happened multiple times in the past. Patient states
that she is scheduled to have an ablation in September. Heart irregularly irregular tachycardic, lungs clear, abdomen soft nondistended nontender. Patient has been compliant with Eliquis. Discussed risk first benefits of cardioversion versus
starting Cardizem here in the ER. Patient agreeable to cardioversion. Cardioverted patient twice, unsuccessful, went back to normal rhythm and then was immediately back to atrial fibrillation with RVR. Decision made to start Cardizem, admit for
cardiology consult
Discharge Plan
Departure
Patient Disposition: Admit
Admit to: Telemetry
Presentation/result/management discussed w/ accepting MD/DO: Hospitalist
Patient with high blood pressure during this ER visit?: Yes
Condition: Good
Covid-19: Not Applicable
Discharge Problem:
Paroxysmal A-fib
Interventions
Interventions:
*Risk Screen - Suicide Last Done: 07/25/24 17:55
*General Assessment Last Done: 07/25/24 17:55
*Neglect/Abuse Screening Last Done: 07/25/24 17:55
*ED COVID-19 Vaccine History Last Done: 07/25/24 17:53
*Nursing Disposition Last Done: 07/25/24 23:19
ED- Pulmonary Assessment Last Done: 07/25/24 17:55
ED- Cardiac Assessment Last Done: 07/25/24 17:55
Discharge Date and Time
Discharge Date/Time: 07/25/24 23:19
[2024-07-25 18:23] LABS: INR 0.99; PT 13.5 Sec (11.4-14.6)
[2024-07-25 18:24] LABS: APTT 29.5 Sec (23.4-35.0)
[2024-07-25 18:31] LABS: ALT (SGPT) 12 U/L (0-35); AST (SGOT) 26 U/L (14-36); Albumin 3.4 g/dl (3.5-5.0); Alkaline Phosphatase 57 U/L (38-126); Blood Urea Nitrogen 29 mg/dl (7-17); Calcium 8.3 mg/dl (8.4-10.2); Carbon Dioxide 24 mmol/L (22-30); Chloride 103 mmol/L (98-107); Glucose 107 mg/dl (70-99); Sodium 135 mmol/L (135-145); Total Bilirubin 0.4 mg/dl (0.2-1.3); Total Protein 5.9 g/dl (6.3-8.2); eGFR > 60.00
[2024-07-25 18:37] LABS: Troponin I < 0.012 ng/ml
[2024-07-25] MEDS: NSS 500 IV (18:43)
[2024-07-25] MEDS: CARDIZEM 125 IV (18:44)
--- NOTE | 2024-07-25 19:11 | HPS.HSE ---
Family Physician
-
Family Physician: Robb Jackman [facility]
Chief Complaint
-
Palpitations
History of Present Illness
Patient with history of proximal atrial fibrillation status post cardioversion in the past, on anticoagulation, history of CHF preserved EF, hypertension who presents to the emergency department with palpitations and rapid A-fib.
Patient reported that she had a stye for which she was started on doxycycline yesterday. She developed abdominal discomfort and explosive diarrhea. She did take her Eliquis but did not take her Lasix this morning. She reported that she felt
dehydrated. The following morning she ludy in a sweat with palpitations. She checked her heart rate and it was in the 140s. Monitor said atrial fibrillation. She will for as long as possible but the symptoms persisted so she came to the
emergency department. She was not having any chest pain. She denied feeling short of breath lightheaded or dizzy. She has had no fevers or chills.
Patient reports history of neuropathy/Parkinson's with amiodarone in the past and is currently on dofetilide.
The emergency department she was afebrile, she was tachycardic to the 140s and blood pressure was 120/86. She was at 90% on room air. ECG showed A-fib with RVR and 140s. Troponin was 0.012. CBC and chemistries as well as BUN/creatinine were
unchanged from prior and within normal range. There was cardioversion attempted twice both of which were unsuccessful.
Medical History
Past Medical History
Past Medical History: Reports Arrhythmia (Paroxysmal atrial fibrillation), CHF, GERD, HTN and Psychiatric (Anxiety, depression)
Additional Past Medical History:
Chronic pain
Irritable bowel syndrome
Stress incontinence
History of subdural hematoma
Her migraine headaches
Past Surgical History: Reports Gynocological (Tubal ligation)
Social History
Tobacco: Former Smoker
Alcohol: None
Drug: None
Personal:
Living: Assisted Living
Employment: Retired
Family History
Family History: Not pertinent
Allergies / Home Medications
Allergies reflects when Allergies were last updated in [employer].
Home Medications with original date entered in [employer]
Allergy/Medication List:
Allergies
Allergy/AdvReac Type Severity Reaction Status Date / Time
meperidine [From Demerol] Allergy Rash Verified 12/18/20 17:29
Penicillins Allergy Rash Verified 12/18/20 17:29
Sulfa (Sulfonamide Allergy Nausea / Verified 12/18/20 17:29
Antibiotics) Vomiting
Home Medications
apixaban 5 mg tablet (Eliquis) 5 mg PO BID Blood Clot Prevention/Tx 06/18/24
cholecalciferol (vitamin D3) 25 mcg (1,000 unit) tablet (Vitamin D3) 75 mcg PO DAILY Supplement 06/18/24
dofetilide 500 mcg capsule 500 mcg PO BID Arrhythmia 06/18/24
duloxetine 60 mg capsule,delayed release 60 mg PO HS Depression 06/18/24
losartan 25 mg tablet 12.5 mg PO DAILY Blood Pressure 06/18/24
oxycodone-acetaminophen 5 mg-325 mg tablet 1 tab PO Q4H Pain 06/18/24
rabeprazole 20 mg tablet,delayed release 20 mg PO BID Gastrointestinal Issue 06/18/24
sennosides 8.6 mg tablet (senna) 17.2 mg PO HS Constipation 06/18/24
furosemide 40 mg tablet (Lasix) 40 mg PO DAILY Heart Failure #30 tabs 06/20/24
metoprolol tartrate 50 mg tablet 75 mg (1.5 x 50 mg) PO BID Arrhythmia #90 tabs 06/20/24
Review of Systems
-
History Source: Patient
Constitutional: Reports No Symptoms
EENT: Reports No Symptoms
Respiratory: Reports No Symptoms
Cardiac: Reports Palpitations
Abdomen/GI: Reports No Symptoms
: Reports No Symptoms
Musculoskeletal: Reports No Symptoms
Skin: Reports No Symptoms
Neurological: Reports No Symptoms
Endocrine: Reports No Symptoms
Hematologic/Lymphatic: Reports No Symptoms
Psych: Reports No Symptoms
Physical Exam
Vital Signs
Vital Signs
Temp Pulse Resp BP Pulse Ox
98.1 F 146 16 119/86 100
07/25/24 18:45 07/25/24 19:00 07/25/24 19:00 07/25/24 18:45 07/25/24 19:00
Physical Exam
General: Well Developed, Well Nourished, Comfortable and Conversant
HEENT: NormoCephalic, Moist mucous membranes and Atraumatic
Respiratory: Clear
Cardiac: S1/S2, Irregular Rhythm and Tachycardia
Breast: Deferred by me
GI: Non Tender, Non Distended and Normal Bowel Sounds
Rectal: Deferred by Provider
Genito-urinary: Deferred by me
Musculoskeletal: No Clubbing, No Cyanosis, Edema, Left Lower Extremity (Trace) and Edema, Right Lower Extremity (Trace)
Skin: Warm
Neuro: AO x 3
Psych: Calm and Intact Judgment/Insight
Laboratory Results
-
07/25/24 18:06
07/25/24 18:06
Laboratory Results
PT 13.5 Sec (11.4-14.6) 07/25/24 18:06
INR 0.99 07/25/24 18:06
APTT 29.5 Sec (23.4-35.0) 07/25/24 18:06
Total Bilirubin 0.4 mg/dl (0.2-1.3) 07/25/24 18:06
AST 26 U/L (14-36) 07/25/24 18:06
ALT 12 U/L (0-35) 07/25/24 18:06
Alkaline Phosphatase 57 U/L (38-126) 07/25/24 18:06
Troponin I < 0.012 ng/ml 07/25/24 18:06
Data Reviewed
-
Medical Tests (Nuc Med, Echo, EKG etc): Image Personally Visualized and interpreted
Lab Data: Labs Reviewed by me
Old Records: Reviewed
Impression/Plan
-
IMPRESSION:
Patient 83-year-old female with history of atrial fibrillation comes in with recurrent rapid A-fib. She is pending ablation in September. Had attempted cardioversion x 2 in the ED which were unsuccessful.
PLAN:
Rapid AFIB- Failure of cardioversion on arrival in ED. Has tolerated and cardioverted with diltiazem in the past.
- admit to ivu
- attempt chemical cardioverstion, diltiazem gtt for now.
- continue anticoagulation
- can attempt repeat cardioversion while on dilt in am
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
- continue dofetilide and metoprolol
- continue apixaban
- cardiology consult
CHF - Euvolemic.
- continue metoprolol
- continue lasix 40mg daily tomorrow, hold for SBP < 120
- continue losartan 12.5 daily
DVT PPX - on apixaban
Code Status - Full Code
[2024-07-25] MEDS: CARDIZEM 10 MG IV (19:29)
--- NOTE | 2024-07-25 23:55 | PTCARENOTE ---
Patient received from ED via stretcher, ambulated to bed; Diltiazem gtt infusing at 15mg/hr with HR 90s-110s; Patient afib on the shelter monitor; Pulse ox 95% on RA; Admission completed; Patient does endorse dyspnea on exertion and palpitations;
Chronic lower back and thigh pain that patient states is mild; Patient oriented to room and unit; Call ivory within reach; Plan of care and assessment ongoing
[2024-07-26] VITALS (8 sets, daily range): BP systolic 98–116; BP diastolic 60–70; BMI 26.1
[2024-07-26] MEDS: PERCOCET 5/325 1 TABLET PO ×4 (00:05→11:34)
[2024-07-26] MEDS: ELIQUIS 5 MG PO ×2 (00:05→08:34)
[2024-07-26] MEDS: PROTONIX 40 MG PO ×2 (00:05→08:34)
[2024-07-26] MEDS: CYMBALTA DELAYED RELEASE 60 MG PO (00:05)
[2024-07-26] MEDS: TIKOSYN 500 MCG PO ×2 (00:05→08:34)
[2024-07-26] MEDS: TOPROL XL 75 MG PO ×2 (00:06→08:33)
[2024-07-26] MEDS: LASIX 40 MG PO (00:07)
--- NOTE | 2024-07-26 01:23 | PTCARENOTE ---
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
[2024-07-26] MEDS: CARDIZEM 125 IV (03:48)
[2024-07-26 04:39] LABS: Blood Urea Nitrogen 21 mg/dl (7-17); Calcium 8.2 mg/dl (8.4-10.2); Carbon Dioxide 28 mmol/L (22-30); Chloride 104 mmol/L (98-107); Estimated Creatinine Clearance 42 ml/min; Glucose 103 mg/dl (70-99); Magnesium 2.2 mg/dl (1.6-2.3); Phosphorus 3.8 mg/dl (2.5-4.5); Sodium 140 mmol/L (135-145); eGFR > 60.00
[2024-07-26 05:07] LABS: TSH Reflex To Free T4 1.27 uIU/ml (0.47-4.68)
--- NOTE | 2024-07-26 07:34 | CON.CAR ---
Addendum entered and electronically signed by Munir Fox MD 07/26/24 11:38:
I saw and examined the patient.
The It Desktop Support Specialist's note was reviewed and I agree with the note.
Comment: Briefly, 83-year-old woman past medical history of persistent atrial fibrillation who presented to [facility] emergency department yesterday in atrial fibrillation with rapid ventricular response. Attempts were made at direct-current
cardioversion but unfortunately failed. Patient was admitted and maintained on diltiazem drip overnight and spontaneously converted.
Today she is maintaining sinus rhythm
Feels well, no cardiac complaints
Would continue home Tikosyn, diltiazem and metoprolol
Eliquis for cardioembolic prophylaxis
Tentative plan is for ablation with Dr. Espinoza however this will not be done until 2024
Stable for discharge from my perspective
Original Note:
Consultation
Consultation Request
Date/Time Consultation Requested: 07/25/24 at 1906
Date/Time Consultation Performed: 07/26/24 at 0734
Requesting Provider: Dr. Prado
Performing Provider: Dr. Mejia
Reason for Consultation: Recurrent Afib with RVR
Medical History
-
History of Present Illness:
Patient came to [facility] yesterday with palpitations and was admitted with Afib with consult to cardiology. Patient has a h/o pAfib and was previously seen for consultation for PVI in 2021, but elected not to proceed. Patient was then admitted to [facility]
with acute HF and rapid Afib 05/2024. Patient spontaneously converted with Cardizem IV and was loaded with Tikosyn at a moderate dose. Patient was d/c'd to home and returned about a week later with more Afib and her Tikosyn dose was increased to 500
mcg q 12 hours. Patient then saw Dr. Bennett in the office 06/12/24 and was in SR. Patient was then admitted to for acute HF and recurrent Afib 06/18/24 until 06/20/24. Patient was interested in ablation and had an outpatient CT chest for possible
h/o cor triatrium. Patient evaluated by EP as an outpatient on 07/09/24 and was agreeable to attempt at PVI/PFA, patient is currently scheduled for 10/04/24 due to the need for extra time and equipment. In the interim patient was started on
doxycycline for a stye and after one dose on Tuesday she had N/V/D and then started with palpitations. In [facility] last evening patient had an attempted CV x2 and was admitted with spontaneous conversion while on Cardizem gtt overnight. Patient remains
in SR. No chest pain. No SOB. No additional N/V/D since Tuesday.
PMH:
Paroxysmal Afib
sotalol stopped due to ineffectiveness
amiodarone stopped due to neurologic side effects and long QT
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
Chronic Tikosyn therapy since 05/2024
Chronic Eliquis OAC
Chronic HFpEF
Recent admission x2 at [facility] and for Afib and CHF 05/2024 and 06/18/24 until 06/20/24
Frequent PACs
HTN
Chronic pain with opioid dependence
Past Medical History
Past Medical History: Other (in HPI)
Past Surgical History: Gynecological (tubal ligation)
Social History
Tobacco: Former Smoker
Alcohol: None
Drug: None
Living: Alone (independent living at [facility])
Family History
Family History: CAD and Cancer
Allergies / Home Medications
Allergy/AdvReac Type Severity Reaction Status Date / Time
meperidine [From Demerol] Allergy Rash Verified 12/18/20 17:29
Penicillins Allergy Rash Verified 12/18/20 17:29
Sulfa (Sulfonamide Allergy Nausea / Verified 12/18/20 17:29
Antibiotics) Vomiting
�Medication �Instructions �Recorded �Confirmed �Type
apixaban 5 mg tablet (Eliquis) 5 mg PO BID Blood Clot 06/18/24 07/25/24 History
Prevention/Tx
cholecalciferol (vitamin D3) 25 75 mcg PO DAILY Supplement 06/18/24 07/25/24 History
mcg (1,000 unit) tablet (Vitamin
D3)
dofetilide 500 mcg capsule 500 mcg PO BID Arrhythmia 06/18/24 07/25/24 History
duloxetine 60 mg capsule,delayed 60 mg PO HS Depression 06/18/24 07/25/24 History
release
oxycodone-acetaminophen 5 mg-325 1 tab PO Q4H Pain 06/18/24 07/25/24 History
mg tablet
rabeprazole 20 mg tablet,delayed 20 mg PO BID Gastrointestinal Issue 06/18/24 07/25/24 History
release
sennosides 8.6 mg tablet (senna) 17.2 mg PO HSPRN PRN constipation 06/18/24 07/25/24 History
docusate sodium 100 mg capsule 100 mg PO BIDPRN PRN constipation 07/25/24 07/25/24 History
(Colace)
furosemide 20 mg tablet 20 mg PO MOTUTHFRSA 07/25/24 07/25/24 History
furosemide 20 mg tablet 40 mg PO SUWE 07/25/24 07/25/24 History
metoprolol succinate 50 mg 75 mg PO BID 07/25/24 07/25/24 History
tablet,extended release 24 hr
ondansetron HCl 4 mg tablet 4 mg PO DAILYPRN PRN nausea 07/25/24 07/25/24 History
latanoprost 0.005 % eye drops 1 drp RIGHT EYE QPM 07/26/24 07/26/24 History
Review of Systems
-
History Source: Patient
All other systems: Negative unless noted
Physical Exam
Vital Signs
Temp Pulse Resp BP Pulse Ox
98.3 F 65 20 111/60 95
07/26/24 07:03 07/26/24 06:00 07/26/24 07:03 07/26/24 03:36 07/26/24 07:03
GEN: NAD. AAOx3
HEENT: EOMI, MMM
LUNGS: Right base rales without wheeze. On RA
CV: SR on tele. Reg, S1/S2, no murmur
ABD: soft, BS+, NT, ND
EXT: No clubbing, cyanosis, lesions or edema B/L
NEURO: Gross non-focal
SKIN: Warm, dry and pink. No rash
Lab Results
07/25/24 18:06
07/26/24 03:45
Troponin I < 0.012 ng/ml 07/25/24 18:06
Impression / Plan
-
PCP: Dr. Robb Atwood
Cardiology: Dr. Bennett at [facility]
EP: Dr. Espinoza
Impression:
Afib with RVR
[facility] 07/25/24
spontaneously converted to SR on Cardizem gtt 07/26/24
Paroxysmal Afib
sotalol stopped due to ineffectiveness
amiodarone stopped due to neurologic side effects and long QT
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
Chronic Tikosyn therapy since 05/2024
Chronic Eliquis OAC
Chronic HFpEF
Recent admission x2 at [facility] and for Afib and CHF 05/2024 and 06/18/24 until 06/20/24
Frequent PACs
HTN
Chronic pain with opioid dependence
Echo echo 05/25/2024: EF 60 to 65%, normal RV function, mild MR
Plan:
-Patient came to [facility] yesterday with palpitations and was admitted with Afib with consult to cardiology. Patient has a h/o pAfib and was previously seen for consultation for PVI in 2021, but elected not to proceed. Patient was then admitted to [facility]
with acute HF and rapid Afib 05/2024. Patient spontaneously converted with Cardizem IV and was loaded with Tikosyn at a moderate dose. Patient was d/c'd to home and returned about a week later with more Afib and her Tikosyn dose was increased to 500
mcg q 12 hours. Patient then saw Dr. Bennett in the office 06/12/24 and was in SR. Patient was then admitted to for acute HF and recurrent Afib 06/18/24 until 06/20/24. Patient was interested in ablation and had an outpatient CT chest for possible
h/o cor triatrium. Patient evaluated by EP as an outpatient on 07/09/24 and was agreeable to attempt at PVI/PFA, patient is currently scheduled for 10/04/24 due to the need for extra time and equipment. In the interim patient was started on
doxycycline for a stye and after one dose on Tuesday she had N/V/D and then started with palpitations. In [facility] last evening patient had an attempted CV x2 and was admitted with spontaneous conversion while on Cardizem gtt overnight. Patient remains
in SR. No chest pain. No SOB. No additional N/V/D since Tuesday.
-ECG from last night reviewed by me showed Afib with RVR and this AM she is in SR with QTc 465 ms. Tele reviewed by me this AM with SR.
-Patient is symptomatically improved back in SR.
-Patient has historically done well with Cardizem gtt so will add Cardizem CD 180 mg daily to her regimen of Tikosyn 500 mcg q 12 hours. Will decrease her dose of Toprol XL to 50 mg BID
-Cont Eliquis 5 mg BID (age 83, Cre 0.7, wt 68.9 kg). No missed doses.
-Scheduled for ablation 10/04/24 and cannot be moved up due to need to additional equipment and time.
-No evidence of CHF on CXR. Cont usual dose of Lasix 40 mg SuWe and 20 mg all other days
[2024-07-26] MEDS: LASIX 20 MG PO (08:36)
--- NOTE | 2024-07-26 10:19 | W.PN.HOSP.TC ---
Addendum entered and electronically signed by Wilton Prado MD 07/26/24 14:24:
Dictation- [id number]
Addendum entered and electronically signed by Wilton Prado MD 07/26/24 10:28:
Cardizem CD1 80 mg started by cardiology.
Addendum entered and electronically signed by Wilton Prado MD 07/26/24 10:23:
Chronic HFpEF-continue beta-genevieve, Lasix as outpatient.
Original Note:
Today's Communication/Plan
-
dISCHARGE
Assessment / Plan
Assessment / Plan
83-year-old female with palpitations patient was started on doxycycline for stye in left eyeas outpatient and developed diarrhea she also felt dehydrated
Chest x-ray reviewed by me-no acute changes
Small sty e left eye
CVS: S1-S2 normal
Chest: CTA B/L
Abdomen: Soft, NT / Bowel sounds present
# Atrial fibrillation with RVR
Failed cardioversion in ED
History of cardioversion in the past
Continue anticoagulation
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
Sotalol stopped in the past secondary to ineffectiveness
Currently on dofetilide since May 2024 and metoprolol-continue
Continue Eliquis
TSH normal
Cardiology evaluation appreciated
Converted to SR
# Stye left eye- Has erythromycin ointment. Continue
# Diarrhea-Resolved
# History of PACs
# Depression-continue Duloxetine
# GERD-continue PPI
# Migraines
# Hypertension-continue metoprolol
# Chronic pain with opiate dependence for treatment
# Ex-smoker
# DVT prophylaxis-Eliquis
# Full code
D/w CARDS AT BED SIDE
OK FOR DISCHARGE
More than 30 minutes spent in discharge including
Final examination of the patient
Summarizing hospital stay
Instructions for continuing care to all relevant caregivers
Preparation of discharge records, prescriptions, and referral forms
Total time spent (in minutes): 33 MIN
Anticipated Discharge: Today
Subjective/Interval History
-
Date of Service: July 26, 2024
Objective Data
-
Labs:
Laboratory Results
07/26/24
03:45
Sodium 140
Potassium 4.0
Chloride 104
Carbon Dioxide 28
BUN 21 H
Creatinine 0.8
Glucose 103 H
Calcium 8.2 L
Vital Signs:
Vital Signs
Temp Pulse Resp BP Pulse Ox
98.3 F 66 20 116/70 95
07/26/24 07:03 07/26/24 08:33 07/26/24 07:03 07/26/24 08:33 07/26/24 07:03
--- NOTE | 2024-07-26 10:22 | W.DS.TRANS ---
DC Summary - Hospitality Job Titles
-
Discharge Instructions:
Sleep Apnea Risk Low
Discharge Diagnosis/Procedures Atrial fibrillation with rapid rate
Paroxysmal atrial fibrillation
Diarrhea
Chronic heart failure
Chronic pain
Diet Low Residue,2 Gram Sodium,Restrict fluids to 64
oz
Activity As tolerated
Driving Restrictions As prior to admission
Specialty Instructions Weigh Daily
Instructions:
Stand-Alone Forms:
Changes to Home Medications: No
Discharge Medications:
DC Medications w/original date entered in [employer]
apixaban 5 mg tablet (Eliquis) 5 mg PO BID Blood Clot Prevention/Tx 06/18/24
cholecalciferol (vitamin D3) 25 mcg (1,000 unit) tablet (Vitamin D3) 75 mcg PO DAILY Supplement 06/18/24
dofetilide 500 mcg capsule 500 mcg PO BID Arrhythmia 06/18/24
duloxetine 60 mg capsule,delayed release 60 mg PO HS Depression 06/18/24
oxycodone-acetaminophen 5 mg-325 mg tablet 1 tab PO Q4H Pain 06/18/24
rabeprazole 20 mg tablet,delayed release 20 mg PO BID Gastrointestinal Issue 06/18/24
sennosides 8.6 mg tablet (senna) 17.2 mg PO HSPRN PRN constipation 06/18/24
docusate sodium 100 mg capsule (Colace) 100 mg PO BIDPRN PRN constipation 07/25/24
furosemide 20 mg tablet 20 mg PO MOTUTHFRSA Fluid Retention/Swelling 07/25/24
furosemide 20 mg tablet 40 mg PO SUWE Fluid Retention/Swelling 07/25/24
metoprolol succinate 50 mg tablet,extended release 24 hr 75 mg PO BID Blood Pressure 07/25/24
ondansetron HCl 4 mg tablet 4 mg PO DAILYPRN PRN nausea 07/25/24
latanoprost 0.005 % eye drops 1 drp RIGHT EYE QPM Eye Condition 07/26/24
Home Medication Changes
Pending Results: No
--- NOTE | 2024-07-26 10:28 | W.DS.TRANS ---
DC Summary - Bacon De Rinder
-
Discharge Instructions:
Sleep Apnea Risk Low
Discharge Diagnosis/Procedures Atrial fibrillation with rapid rate
Paroxysmal atrial fibrillation
Diarrhea
Chronic heart failure
Chronic pain
Diet Low Residue,2 Gram Sodium,Restrict fluids to 64
oz
Activity As tolerated
Driving Restrictions As prior to admission
Specialty Instructions Weigh Daily
Instructions:
Stand-Alone Forms:
Changes to Home Medications: Yes
Discharge Medications:
DC Medications w/original date entered in [employer]
apixaban 5 mg tablet (Eliquis) 5 mg PO BID Blood Clot Prevention/Tx 06/18/24
cholecalciferol (vitamin D3) 25 mcg (1,000 unit) tablet (Vitamin D3) 75 mcg PO DAILY Supplement 06/18/24
dofetilide 500 mcg capsule 500 mcg PO BID Arrhythmia 06/18/24
duloxetine 60 mg capsule,delayed release 60 mg PO HS Depression 06/18/24
oxycodone-acetaminophen 5 mg-325 mg tablet 1 tab PO Q4H Pain 06/18/24
rabeprazole 20 mg tablet,delayed release 20 mg PO BID Gastrointestinal Issue 06/18/24
sennosides 8.6 mg tablet (senna) 17.2 mg PO HSPRN PRN constipation 06/18/24
docusate sodium 100 mg capsule (Colace) 100 mg PO BIDPRN PRN constipation 07/25/24
furosemide 20 mg tablet 20 mg PO MOTUTHFRSA Fluid Retention/Swelling 07/25/24
furosemide 20 mg tablet 40 mg PO SUWE Fluid Retention/Swelling 07/25/24
metoprolol succinate 50 mg tablet,extended release 24 hr 75 mg PO BID Blood Pressure 07/25/24
ondansetron HCl 4 mg tablet 4 mg PO DAILYPRN PRN nausea 07/25/24
diltiazem HCl 180 mg capsule,extended release 24 hr (Cardizem CD) 180 mg PO DAILY Arrhythmia #30 caps 07/26/24
latanoprost 0.005 % eye drops 1 drp RIGHT EYE QPM Eye Condition 07/26/24
Home Medication Changes
Cardizem CD is new
Pending Results: No
[2024-07-26] MEDS: CARDIZEM CD 180 MG PO (11:34)
--- NOTE | 2024-07-26 12:39 | PTCARENOTE ---
Patient discharged. Teaching completed, patient verbalized understanding. IV and telemetry removed. Acute care wheelchair van will pick patient up at 1330 today. Payment received to the company over the phone by patient.
--- NOTE | 2024-07-26 12:39 | CM ---
CM following for DC planning needs.
Pt. known to me from previous admission.
Pt. comes from [facility], where she resides alone. She receives support thru [employer] 8a-8p daily. She has been receiving home-care services thru [facility]. Pt. would like to resume [facility].
Pt. needs transport home. Has used our wheelchair van in the past and would like to use again; is agreeable to cost.
Initiated referral back to [facility] for resumption of care.
Plan: HOME today via [facility] with [facility].
--- NOTE | 2024-07-26 13:08 | PTCARENOTE ---
Patient discharged to [facility] in [facility] van. All belongings sent.
--- NOTE | 2024-07-26 14:23 | W.DS.TRANS ---
DC Summary - Contracting Analyst
-
Discharge Instructions:
Sleep Apnea Risk Low
Discharge Diagnosis/Procedures Atrial fibrillation with rapid rate
Paroxysmal atrial fibrillation
Diarrhea
Chronic heart failure
Chronic pain
Diet Low Residue,2 Gram Sodium,Restrict fluids to 64
oz
Activity As tolerated
Driving Restrictions As prior to admission
Specialty Instructions Weigh Daily
Instructions:
Stand-Alone Forms:
Changes to Home Medications: Yes
Discharge Medications:
DC Medications w/original date entered in [employer]
apixaban 5 mg tablet (Eliquis) 5 mg PO BID Blood Clot Prevention/Tx 06/18/24
cholecalciferol (vitamin D3) 25 mcg (1,000 unit) tablet (Vitamin D3) 75 mcg PO DAILY Supplement 06/18/24
dofetilide 500 mcg capsule 500 mcg PO BID Arrhythmia 06/18/24
duloxetine 60 mg capsule,delayed release 60 mg PO HS Depression 06/18/24
oxycodone-acetaminophen 5 mg-325 mg tablet 1 tab PO Q4H Pain 06/18/24
rabeprazole 20 mg tablet,delayed release 20 mg PO BID Gastrointestinal Issue 06/18/24
sennosides 8.6 mg tablet (senna) 17.2 mg PO HSPRN PRN constipation 06/18/24
docusate sodium 100 mg capsule (Colace) 100 mg PO BIDPRN PRN constipation 07/25/24
furosemide 20 mg tablet 20 mg PO MOTUTHFRSA Fluid Retention/Swelling 07/25/24
furosemide 20 mg tablet 40 mg PO SUWE Fluid Retention/Swelling 07/25/24
ondansetron HCl 4 mg tablet 4 mg PO DAILYPRN PRN nausea 07/25/24
diltiazem HCl 180 mg capsule,extended release 24 hr (Cardizem CD) 180 mg PO DAILY Arrhythmia #30 caps 07/26/24
latanoprost 0.005 % eye drops 1 drp RIGHT EYE QPM Eye Condition 07/26/24
metoprolol succinate 50 mg tablet,extended release 24 hr (Toprol XL) 50 mg PO BID Arrhythmia #60 tabs 07/26/24
Home Medication Changes
new Diltiazem
Metoprolol decreased
Pending Results: No
== END 2024-07-26 13:09 | disposition home health service (06) | DRG 309 ==
LOC: IVU 19:51
PROVIDERS: ADMITTING PHYSICIAN Internal Medicine; ATTENDING PHYSICIAN Hospitalist; EMERGENCY PHYSICIAN Emergency Medicine; FAMILY PHYSICIAN Family Medicine; OTHER PHYSICIAN Internal Medicine Cardiovascular Disease
DX: I48.19 Other persistent atrial fibrillation (principal); I50.32 Chronic diastolic (congestive) heart failure; Z87.891 Personal history of nicotine dependence; I11.0 Hypertensive heart disease with heart failure; Z79.01 Long term (current) use of anticoagulants; H00.019 Hordeolum externum unspecified eye, unspecified eyelid; K21.9 Gastro-esophageal reflux disease without esophagitis; F32.A Depression, unspecified; G89.29 Other chronic pain; G20.A1 Parkinson's disease without dyskinesia, without mention of fluctuations
CPT/HCPCS: 71046; 80048; 80053; 83735; 84100; 84443; 84484; 85025; 85610; 85730; 87070; 92960; 93005; 96361; 96365; 99152; 99285

== ENCOUNTER 2024-10-04 08:01 | Day surgery (SDC) | payer MEDICARE, OTHER, SELFPAY ==
[2024-09-18 11:12] VITALS: BMI 27.8
[2024-10-04] VITALS (17 sets, daily range): BP systolic 99–173; BP diastolic 54–87; BMI 26.7
[2024-10-04 11:32] LABS: ACT-LR - POC 269 Seconds (116-155)
[2024-10-04 11:53] LABS: ACT-LR - POC 303 Seconds (116-155)
--- NOTE | 2024-10-04 12:27 | ITS.CL.ABL ---
Addendum entered and electronically signed by Raji Espinoza MD 10/04/24 12:41:
The patient provided verbal consent to utilize images of her congenital abnormality and images from her procedure.
Original Note:
Report Checker - Ablation
Ablation
Procedure Report:
ELECTROPHYSIOLOGY ABLATION STUDY
DATE:: October 04, 2024�����������������������������REFERRING: Dr. Bennett
INDICATION: Paroxysmal supraventricular tachycardia in the form of atrial fibrillation.��Refractory to dofetilide
HISTORY: See H and P.��As above
ANTIARRHYTHMIC DRUG: Dofetilide 500 mcg twice daily
PRE-PROCEDURE CAL: No intracardiac thrombus in the anterior compartment and the left atrial appendage by intracardiac ultrasound
PRESENTING RHYTHM: Sinus rhythm
'TIME-OUT':��called and confirmed.
SEDATION/ANESTHESIA:��provided via the anesthesia department using general anesthesia (LMA).
INTRAVENOUS/ARTERIAL ACCESS:
Right femoral venous - 10 Fr,
Left femoral venous - 8 Fr, 6 Fr
Ultrasound guidance for bilateral femoral vein access was utilized by me to obtain access with demonstration of normal anatomy
CHADS-VASC Score:
HAS-Bled Score
PROCEDURE:
1.��A decapolar CS catheter was placed within the CS for mapping and pacing.��This was also used as the reference catheter for the 3-D map.
2. The intracardiac ultrasound catheter was positioned in the RA to identify the FO for targeting of transseptal puncture, assist��in identification of the pulmonary vein ostia, monitoring pre and post ablation pulmonary vein flow velocities,
monitoring for 'bubble' formation during RF application as a sign of thermal injury,��and to monitor for pericardial effusion during mapping and ablation procedure.���Left atrial size, LV ejection fraction, and pulmonary vein flows were monitored
pre and post ablation procedure. The other valves were inspected and found to be free of significant regurgitation or stenosis. 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
pulmonary veins came off of the posterior and superior compartment with the interatrial fossa facing this compartment. There was a small double atrial septum as well. There was no clear or direct access into the anterior compartment from the
interatrial fossa and the right atrium. The distance from the interatrial membrane in the central portion back to the posterior wall was between 2 and 2.4 cm. The right pulmonary veins were diminutive with a bifurcating right inferior 5 mm and 6
mm and a extremely anterior right superior pulmonary vein takeoff of approximately 6 mm.
3.��Half of the calculated heparin bolus was administered prior to the first transeptal puncture.��Transseptal puncture was performed to diagnose RA and LA pressure so that safety of LA mapping and ablation could be further assessed, and to access
the left atrium and pulmonary veins for mapping and ablation.��This entailed advancing an 10 [place] steerable sheath with safe septal wire and with dilator into the superior vena cava and withdrawing both (monitoring intracardiac ultrasound,
fluoroscopy and tip pressure) with the tip oriented toward the atrial septum.��The fossa ovalis was engaged (indicated by sudden displacement of the sheath tip as well as tenting of the fossa seen on intracardiac ultrasound).��Left atrial access
required a pass with the [place] needle extended.��Left atrial catheter position was confirmed by pressure monitoring (RA mean pressure 8 mm Hg and LA mean presure 14 mm Hg), LA saturation (99%),��as well as fluoroscopy.��The sheath was
advanced over the dilator and positioned in the left atrium.����The remainder of the calculated heparin bolus was administered and heparin was
infused to maintain ACT at 300 -350 seconds throughout the case. The anterior compartment was not mapped during this case.
4.��RA pacing was performed via the proximal decapolar poles and LA pacing was performed via the distal decapolr poles.
5. A quadrapolar catheter was first positioned at the His position for His Bundle recording which was tagged via the 3-D Navex sytem, and then passed to the RVA for RV pacing and recording.
6. The lattice catheter was placed in each of the LIPV, LSPV, RSPV and the RIPV.��The left pulmonary vein system was a long left common os with a distal miles and the right pulmonary veins were extremely diminutive with a bifurcating right inferior
of 5 mm and 6 mm diameter and a separate anterior right superior pulmonary vein approximately 6 mm in diameter. We were able to engage the lightest catheter into each of the veins although we could not pass the lettuce catheter distally in the
right superior pulmonary vein.
7.��Next, a 3-D map was created using Navex.���A 3-D reconstructed CT image was compared to the 3-D Navex map to assist in anatomic interpretation, mapping and ablation.��The CT image and the NavX image were fused.
8. [place] ablation around the right and left veins including each miles was entailed with a roofline and floor line undertaken isolating all of the pulmonary veins with entrance and exit block achieved and the posterior wall was also
electrically isolated. At baseline the anterior membrane had a paucity of signal and electrical silence on much of the anterior membrane.
9. After ablation the patient demonstrated normal sinus node function and was noninducible for any other tachyarrhythmias.
TOTAL FLOURO TIME: 9.6 minutes 74.9 mGy
TOTAL RF DURATION: 0 minutes
REVERSAL OF HEPARIN: 35 mg of protamine, slow IV administration
COMPLICATIONS:
None
Intracardiac US shows no pericardial effusion post ablation.
SUMMARY:��
Complex left atrial mapping and ablation.
Pulmonary vein isolation of all the pulmonary veins as above and left atrial posterior wall isolation from roof to floor. The patient had congenital heart disease which made this procedure increased in complexity.
Of note all 4 pulmonary veins are accessible from the posterior compartment. There was no clear communication between the interatrial fossa�right atrium to the anterior compartment.
RECOMMENDATIONS:
1. Ambulate in 4 hours
2. Resume anticoagulation
3.��Continue dofetilide for 1 to 3 months and if clinical stable without AF can consider discontinuation or lowering
4.��Can consider same-day discharge
Copy to: Dr. Bennett
--- NOTE | 2024-10-04 13:12 | PTCARENOTE ---
SCREENING UNIT REGISTERED NURSE REVIEWED POST EKG
[2024-10-04] MEDS: PERCOCET 5/325 1 TABLET PO ×3 (14:22→22:02)
[2024-10-04] MEDS: TYLENOL 650 MG PO (17:33)
--- NOTE | 2024-10-04 19:32 | PTCARENOTE ---
Pt received from recovery area post ablation. Pt c/o multiple discomforts due to chronic pain issues, some relief with scheduled percocet. Bilateral femoral sites with dry and intact dressings, no sign of bleeding or hematoma, palpable pedal pulses.
Pt prefers to remain in bed . Telemetry shows sinus rhythm with PAC's. Pt is a fall risk, she is oriented X 3, fall precautions in place.
[2024-10-04] MEDS: ELIQUIS 5 MG PO (20:15)
[2024-10-04] MEDS: TOPROL XL 50 MG PO (20:15)
[2024-10-04] MEDS: TIKOSYN 500 MCG PO (20:15)
[2024-10-04] MEDS: PROTONIX 40 MG PO (20:15)
[2024-10-04] MEDS: MS CONTIN (EXTENDED RELEASE) 15 MG PO (21:28)
--- NOTE | 2024-10-04 21:35 | PTCARENOTE ---
assumed care of patient at the change of shift. AAOx3. complains of back pain and hip pain-baseline per patient. ordered medications given and reviewed with patient. SR on tele with [id number]. bp stable. b/l groin site intact. + pulses/+1 LE
edema noted. purewick in place-yellow urine. turn/reposition q2hr. call ivory within reach. calls appropriately.
[2024-10-04] MEDS: CYMBALTA DELAYED RELEASE 60 MG PO (22:02)
[2024-10-04] MEDS: XALATAN OPHTHALMIC SOLUTION 1 DROP BOTH EYES (22:03)
[2024-10-05] MEDS: PERCOCET 5/325 1 TABLET PO ×3 (02:05→09:52)
[2024-10-05 04:58] VITALS: BP 136/77
[2024-10-05 05:28] LABS: Hematocrit 35.2 % (37.0-47.0); Hemoglobin 11.3 g/dL (12.0-16.0); Mean Corp Hgb Conc. 32.1 g/dL (33.0-37.0); Mean Corpuscular Hgb 30.3 pg (27.0-31.0); Mean Corpuscular Volume 94.4 fL (81.0-99.0); Mean Platelet Volume 9.1 fL (7.4-10.4); Platelet Count 241 10^3/uL (130-400); Red Blood Cell Count 3.73 10^6/uL (4.20-5.40); Red Cell Dist. Width 14.6 % (11.5-14.5); White Blood Cell Count 11.6 10^3/uL (4.8-10.8)
[2024-10-05 06:09] LABS: Blood Urea Nitrogen 18 mg/dl (7-17); Calcium 8.7 mg/dl (8.4-10.2); Carbon Dioxide 29 mmol/L (22-30); Chloride 102 mmol/L (98-107); Estimated Creatinine Clearance 53 ml/min; Glucose 115 mg/dl (70-99); Magnesium 2.4 mg/dl (1.6-2.3); Potassium 4.6 mmol/L (3.5-5.1); Sodium 137 mmol/L (135-145); eGFR > 60.00
[2024-10-05 07:49] VITALS: BP 134/74
[2024-10-05] MEDS: TIKOSYN 500 MCG PO (08:20)
[2024-10-05] MEDS: ELIQUIS 5 MG PO (08:20)
[2024-10-05] MEDS: CARDIZEM CD 120 MG PO (08:20)
[2024-10-05] MEDS: PROTONIX 40 MG PO (08:20)
[2024-10-05] MEDS: TOPROL XL 50 MG PO (08:21)
--- NOTE | 2024-10-05 09:03 | W.PN.CARDCBS ---
Addendum entered and electronically signed by Raji Espinoza MD 10/05/24 10:03:
Patient seen and examined
Agree with TRAIN STATION SERVER note assessment
Sinus rhythm on telemetry
Exam:
HEENT normocephalic atraumatic
JVP 6
Cor regular
Lungs clear
Nonfocal neurologically
No extremity edema
Impression:
Symptomatic paroxysmal atrial fibrillation
post ablation PVI/PW 10/04/24
congenital cor triatriatum
Chronic HFpEF
HTN
Amiodarone toxicity parkinsonian syndrome
long QT syndrome
GERD
IBS
h/o SDH
ambulatory dysfunction/falls
Anxiety/Depression
Plan:
tele SR 1 deg AVB
OAC Eliquis
Decrease diltiazem to 120mg daily
continue dofetilide 500 bid, to consider weaning in 1-3 mo
f/u Dr. Bennett
home today
Original Note:
Today's Communication / Plan
-
post ablation, stable for d/c home
Impression / Plan
-
PCP: Dr. Atwood
CDY: Dr. Bennett
Impression:
Symptomatic paroxysmal atrial fibrillation
post ablation PVI/PW 10/04/24
congenital cor triatriatum
Chronic HFpEF
HTN
Amiodarone toxicity parkinsonian syndrome
long QT syndrome
GERD
IBS
h/o SDH
ambulatory dysfunction/falls
Anxiety/Depression
Plan:
post ablation, mild L thing numbness
groins stable, soft
tele SR 1 deg AVB
OAC Eliquis
Decrease diltiazem to 120mg daily
continue dofetilide 500 bid, to consider weaning in 1-3 mo
Activity restrictions reviewed
f/u Dr. Bennett
home today
SUMMARY:��
Complex left atrial mapping and ablation.
Pulmonary vein isolation of all the pulmonary veins as above and left atrial posterior wall isolation from roof to floor. The patient had congenital heart disease which made this procedure increased in complexity.
Of note all 4 pulmonary veins are accessible from the posterior compartment. There was no clear communication between the interatrial fossa�right atrium to the anterior compartment.
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
Subjective
Date of Service: October 05, 2024
no cp, sob, mild L thing numbness
Objective
Labs:
10/05/24 05:09
10/05/24 05:09
Labs
Hgb 11.3 g/dL (12.0-16.0) L 10/05/24 05:09
Hct 35.2 % (37.0-47.0) L 10/05/24 05:09
Plt Count 241 10^3/uL (130-400) 10/05/24 05:09
Sodium 137 mmol/L (135-145) 10/05/24 05:09
Potassium 4.6 mmol/L (3.5-5.1) 10/05/24 05:09
BUN 18 mg/dl (7-17) H 10/05/24 05:09
Creatinine 0.7 mg/dL (0.6-1.0) 10/05/24 05:09
Glucose 115 mg/dl (70-99) H 10/05/24 05:09
Vital Signs and I&O:
Vital Signs
Temp Pulse Resp BP Pulse Ox
98.1 F 62 18 134/74 96
10/05/24 08:36 10/05/24 08:21 10/05/24 07:49 10/05/24 08:21 10/05/24 07:49
Vital Signs
Temp Pulse Resp BP Pulse Ox
98.1 F 62 18 134/74 96
10/05/24 08:36 10/05/24 08:21 10/05/24 07:49 10/05/24 08:21 10/05/24 07:49
Intake & Output
10/03/24 10/04/24 10/05/24 10/06/24
06:59 06:59 06:59 06:59
Intake Total 1500 / 1500
Output Total 500 / 500
Balance 1000 / 1000
Physical Exam
Physical Exam
NAD. AAOx3
S1, S2, RRR
CTAB, non labored
SNTND Bsx4
b/l groins c/d/i soft, no HT
[2024-10-05 09:06] VITALS: BMI 27.4
--- NOTE | 2024-10-05 09:37 | W.DS.TRANS ---
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
-
Discharge Instructions:
Sleep Apnea Risk Intermediate
Discharge Diagnosis/Procedures Atrial fibrillation post ablation
Diet Low Cholesterol
Driving Restrictions No driving for 24 hours
Instructions:
Stand-Alone Forms: DC Instructions- Cath/EP Lab
Changes to Home Medications: Yes
Discharge Medications:
DC Medications w/original date entered in [employer]
apixaban 5 mg tablet (Eliquis) 5 mg PO BID Blood Clot Prevention/Tx 06/18/24
duloxetine 60 mg capsule,delayed release 60 mg PO HS Depression 06/18/24
oxycodone-acetaminophen 5 mg-325 mg tablet 1 tab PO Q4H Pain 06/18/24
rabeprazole 20 mg tablet,delayed release 20 mg PO BID Gastrointestinal Issue 06/18/24
sennosides 8.6 mg tablet (senna) 17.2 mg PO HSPRN PRN constipation 06/18/24
docusate sodium 100 mg capsule (Colace) 200 mg PO DAILY 07/25/24
furosemide 20 mg tablet 20 mg PO .MOTUTHFRSA EDEMA 07/25/24
latanoprost 0.005 % eye drops 1 drp BOTH EYES HS Eye Condition 07/26/24
acetaminophen 500 mg tablet 500 mg PO BID 09/13/24
metoprolol succinate 50 mg tablet,extended release 24 hr (Toprol XL) 50 mg PO BID CARDIAC 09/13/24
ondansetron 4 mg disintegrating tablet 4 mg PO DAILYPRN PRN N/V 09/13/24
polyethylene glycol 3350 17 gram/dose oral powder 17 g PO DAILYPRN PRN constipation 09/13/24
cholecalciferol (vitamin D3) 125 mcg (5,000 unit) tablet (Vitamin D3) 125 mcg PO Q48H 10/04/24
dofetilide 500 mcg capsule 500 mcg PO BID 10/04/24
furosemide 40 mg tablet 40 mg PO SUWE 10/04/24
morphine 15 mg tablet,extended release 15 mg PO HS 10/04/24
diltiazem HCl 120 mg capsule,extended release 24 hr 120 mg PO DAILY #30 caps 10/05/24
Home Medication Changes
decrease diltiazem to 120mg
Pending Results: No
--- NOTE | 2024-10-05 11:30 | PTCARENOTE ---
Addendum entered by Lizzie Sabillon RN 10/05/24 12:49:
aide came to lease picker patient. D/C to [facility] via [facility].
Original Note:
D/C instructions given to patient , verbalizes understanding. INT D/C'd, telemetry D/C'd, personal belongings packed and sent home with patient. patient waiting for a service to take her back to [facility].
[2024-10-05 12:02] VITALS: BP 135/83
== END 2024-10-05 13:00 | disposition home or self-care (01) ==
LOC: CATH 08:01
PROVIDERS: Nurse Practitioner Adult Health; ATTENDING PHYSICIAN Internal Medicine Cardiovascular Disease; FAMILY PHYSICIAN Internal Medicine; OTHER PHYSICIAN Internal Medicine Interventional Cardiology
DX: I48.0 Paroxysmal atrial fibrillation (principal); G20.C Parkinsonism, unspecified; I50.32 Chronic diastolic (congestive) heart failure; I11.0 Hypertensive heart disease with heart failure; I87.2 Venous insufficiency (chronic) (peripheral); Q24.2 Cor triatriatum; E78.5 Hyperlipidemia, unspecified; K21.9 Gastro-esophageal reflux disease without esophagitis; F32.A Depression, unspecified; F41.9 Anxiety disorder, unspecified; K58.9 Irritable bowel syndrome, unspecified; Z86.73 Personal history of transient ischemic attack (TIA), and cerebral infarction without residual deficits; R26.2 Difficulty in walking, not elsewhere classified; I49.3 Ventricular premature depolarization; Z79.52 Long term (current) use of systemic steroids; Z88.0 Allergy status to penicillin; Z88.8 Allergy status to other drugs, medicaments and biological substances; Z88.1 Allergy status to other antibiotic agents; Z88.5 Allergy status to narcotic agent; Z88.2 Allergy status to sulfonamides; Z79.899 Other long term (current) drug therapy; Z79.01 Long term (current) use of anticoagulants
CPT/HCPCS: C1894; C1730; C1766; C1892; C1759; C1733; 80048; 83735; 85027; 85347; 86900; 86901; 93005; 93656; 93657

== ENCOUNTER → 2025-01-31 15:07 | Outpatient (REF) | payer MEDICARE, OTHER, SELFPAY | LOC: HWRCS 15:07 | PROVIDERS: ATTENDING PHYSICIAN Internal Medicine Cardiovascular Disease; FAMILY PHYSICIAN Internal Medicine Geriatric Medicine | DX: I48.0 Paroxysmal atrial fibrillation (principal); I38 Endocarditis, valve unspecified; I50.32 Chronic diastolic (congestive) heart failure | CPT/HCPCS: 93306 ==

== ENCOUNTER → 2025-02-05 12:37 | Outpatient (REF) | payer MEDICARE, OTHER, SELFPAY | LOC: RCS 12:37 | PROVIDERS: ATTENDING PHYSICIAN Internal Medicine Interventional Cardiology; FAMILY PHYSICIAN Internal Medicine | DX: I48.0 Paroxysmal atrial fibrillation (principal); I50.32 Chronic diastolic (congestive) heart failure | CPT/HCPCS: 78452; 93017; A9500; J2785 ==